=== PATIENT | male | born 1965 | race Two or more races ===

== ENCOUNTER 2019-10-07 01:26 | Inpatient (IN) | payer OTHER ==
[2019-10-07] VITALS (55 sets, daily range): BP systolic 67–145; BP diastolic 30–127
[~2019-10-07] VITALS: Ht 170.2 cm; Wt 87.6 kg
[2019-10-07] MEDS ORDERED: ACETAMINOPHEN500 M5 ORAL (01:32)
[2019-10-07] MEDS ORDERED: BISACODYL10 M1 RC (01:33)
[2019-10-07] MEDS ORDERED: DOCUSATE SODIU100 MG ORAL (01:34)
[2019-10-07] MEDS ORDERED: MINERAL OIL30 ML GT (01:35)
[2019-10-07] MEDS ORDERED: FUROSEMIDE20 M1 ORAL (01:35)
[2019-10-07] MEDS ORDERED: GABAPENTIN100 MG ORAL (01:36)
[2019-10-07] MEDS ORDERED: NORCO 5-325 TA1 EAC1 ORAL (01:37)
[2019-10-07] MEDS ORDERED: LACTULOSE20 GM/301 ORAL (01:38)
--- NOTE | 2019-10-07 01:38 | Emergency Room Report ---
History of Present Illness General Chief Complaint: Altered Level of Consciousness Source: Patient Present Illness HPI Patient is a 54-year-old male brought in by EMS from [place] [facility] for increased altered mental status. Patient had acute onset of increased confusion. Prior history of cirrhosis.Normally patient is reportedly alert and oriented. He was noted to have sugar in the 90s. Been receiving antibiotics for right lower extremity cellulitis. Had previously been taking lactulose. 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 [facility] COVID-19 Screening: Negative COVID-19 COVID-19 Testing Source: [facility] Patient History Past Medical History: see triage record Reviewed Nursing Documentation: PMH: Agreed; PSxH: Agreed Review of Systems All Other Systems: limited - by altered mental status Physical Exam Vital Signs Date Time Temp Pulse Resp B/P (MAP) Pulse Ox O2 Delivery O2 Flow Rate FiO2 10/07/19 01:25 98.4 88 19 99/56 (70) 97 Room Air General Appearance: alert, obese, Chronically Ill Head: atraumatic Eyes: bilateral eye other - hippus Neck: full range of motion Respiratory: chest non-tender, lungs clear, normal breath sounds Cardiovascular #1: regular rate, rhythm, edema - 4+ Gastrointestinal: normal inspection, soft Musculoskeletal: normal inspection Neurologic: alert, motor strength/tone normal, braid cutter III-XII nml as tested, other - confused states name Skin: other - right leg blistering and erythema Medical Decision Making Diagnostic Impression: Primary Impression: Altered level of consciousness Additional Impressions: Hyponatremia Hypoglycemia Cellulitis of right leg Cirrhosis Encephalopathy acute ER Course Patient presented for altered mental status. Differential diagnosis include was not limited to CVA, hepatic encephalopathy, uremia, hypoglycemia among others. Because of complexity of patient's case laboratory tests and imaging studies were ordered . CT imaging showed significant motion artifact without any evidence of acute intracranial hemorrhage. Chest x-ray read by radiology showed patchy infiltrate. Laboratory testing showed initial hypoglycemia with blood sugar in the 50s. Patient was given D50. He was also noted to have significant hyponatremia with initial serum sodium 116. Repeat laboratory testing after hypertonic saline showed minimal improvement the patient sodium 117 . Patient was started on hypertonic saline and given Lasix. He did not have any significant improvement in his mental status. Dr. Fish Bennett was contacted for inpatient management due to covering physician for centering Labs Test 10/07/19 01:43 10/07/19 01:50 White Blood Count 10.6 K/UL (4.8-10.8) Red Blood Count 3.02 M/UL (4.70-6.10) Hemoglobin 10.4 G/DL (14.2-18.0) Hematocrit 29.9 % (42.0-52.0) Mean Corpuscular Volume 99 FL (80-99) Mean Corpuscular Hemoglobin 34.6 PG (27.0-31.0) Mean Corpuscular Hemoglobin Concent 34.9 G/DL (32.0-36.0) Red Cell Distribution Width 14.5 % (11.6-14.8) Platelet Count 116 K/UL (150-450) Mean Platelet Volume 6.7 FL (6.5-10.1) Neutrophils (%) (Auto) 75.7 % (45.0-75.0) Lymphocytes (%) (Auto) 8.8 % (20.0-45.0) Monocytes (%) (Auto) 9.7 % (1.0-10.0) Eosinophils (%) (Auto) 3.4 % (0.0-3.0) Basophils (%) (Auto) 2.4 % (0.0-2.0) Prothrombin Time 21.8 SEC (9.30-11.50) Prothromb Time International Ratio 2.1 (0.9-1.1) Activated Partial Thromboplast Time 50 SEC (23-33) Sodium Level 116 MMOL/L (136-145) Potassium Level 5.3 MMOL/L (3.5-5.1) Chloride Level 87 MMOL/L (98-107) Carbon Dioxide Level 15 MMOL/L (21-32) Anion Gap 13 mmol/L (5-15) Blood Urea Nitrogen 48 mg/dL (7-18) Creatinine 2.4 MG/DL (0.55-1.30) Estimat Glomerular Filtration Rate 28.1 mL/min (>60) Glucose Level 68 MG/DL (74-106) Calcium Level 7.5 MG/DL (8.5-10.1) Total Bilirubin 5.2 MG/DL (0.2-1.0) Direct Bilirubin 4.2 MG/DL (0.0-0.3) Aspartate Amino Transf (AST/SGOT) 89 U/L (15-37) Alanine Aminotransferase (ALT/SGPT) 8 U/L (12-78) Alkaline Phosphatase 149 U/L (46-116) Ammonia 82 umol/L (11-32) Troponin I 0.005 ng/mL (0.000-0.056) Pro-B-Type Natriuretic Peptide 4363 pg/mL (0-125) Total Protein 6.5 G/DL (6.4-8.2) Albumin 1.6 G/DL (3.4-5.0) Globulin 4.9 g/dL Albumin/Globulin Ratio 0.3 (1.0-2.7) Thyroid Stimulating Hormone (TSH) 2.515 uiU/mL (0.358-3.740) Arterial Blood pH 7.336 (7.350-7.450) Arterial Blood Partial Pressure CO2 25.2 mmHg (35.0-45.0) Arterial Blood Partial Pressure O2 75.7 mmHg (75.0-100.0) Arterial Blood HCO3 13.2 mmol/L (22.0-26.0) Arterial Blood Oxygen Saturation 93.8 % (95-100) Arterial Blood Base Excess -11.2 (-2-2) Stefano Test Positive EKG Diagnostic Results Rate: normal Rhythm: NSR ST Segments: no acute changes Last Vital Signs Date Time Temp Pulse Resp B/P (MAP) Pulse Ox O2 Delivery O2 Flow Rate FiO2 10/07/19 01:25 98.4 88 19 99/56 (70) 97 Room Air Status: improved Disposition: ADMITTED INPATIENT Condition: Critical Frank Hayes MD Oct 07, 2019 01:38
[2019-10-07] MEDS ORDERED: LANTUS SOL100 UNIT/1 SUBQ (01:39)
[2019-10-07] MEDS ORDERED: MULTIVITAMINS1 EAC2 ORAL (01:40)
[2019-10-07] MEDS ORDERED: PROPRANOLOL HCL10 MG ORAL (01:40)
[2019-10-07] MEDS ORDERED: SENNA8.6 M2 PO (01:41)
[2019-10-07] MEDS ORDERED: SPIRONOLACTONE100 MG ORAL (01:42)
[2019-10-07] MEDS ORDERED: INSULIN LI100 UNIT/1 SQ (01:47)
[2019-10-07] MEDS ORDERED: Thiamine HCl 100 MG in D5W 55 ML IVPB ONE (02:00)
[2019-10-07] MEDS: D5NS 1,000 ML IV SCH ×3 (02:04→17:51)
[2019-10-07 02:07] LABS: BASOPHILS % (AUTO) 2.4 % (0.0-2.0); EOSINOPHILS % (AUTO) 3.4 % (0.0-3.0); HEMATOCRIT 29.9 % (42.0-52.0); HEMOGLOBIN 10.4 G/DL (14.2-18.0); LYMPHOCYTES % (AUTO) 8.8 % (20.0-45.0); MEAN CORPUSCULAR VOLUME 99 FL (80-99); MONOCYTES % (AUTO) 9.7 % (1.0-10.0); NEUTROPHILS % (AUTO) 75.7 % (45.0-75.0); PLATELET COUNT 116 K/UL (150-450); RED BLOOD COUNT 3.02 M/UL (4.70-6.10); RED CELL DISTRIBUTION WIDTH 14.5 % (11.6-14.8); WHITE BLOOD COUNT 10.6 K/UL (4.8-10.8)
[2019-10-07 02:14] LABS: AMMONIA 82 umol/L (11-32)
[2019-10-07 02:15] LABS: INR 2.1 (0.9-1.1)
[2019-10-07 02:28] LABS: ALANINE AMINOTRANSFERASE 8 U/L (12-78); ALBUMIN 1.6 G/DL (3.4-5.0); ALBUMIN/GLOBULIN RATIO 0.3 (1.0-2.7); ALKALINE PHOSPHATASE 149 U/L (46-116); ANION GAP 13 mmol/L (5-15); ASPARTATE AMINO TRANSFERASE 89 U/L (15-37); BILIRUBIN,TOTAL 5.2 MG/DL (0.2-1.0); BLOOD UREA NITROGEN 48 mg/dL (7-18); CALCIUM 7.5 MG/DL (8.5-10.1); CARBON DIOXIDE 15 MMOL/L (21-32); CHLORIDE 87 MMOL/L (98-107); CREATININE 2.4 MG/DL (0.55-1.30); POTASSIUM 5.3 MMOL/L (3.5-5.1)
[2019-10-07 02:29] LABS: SODIUM 116 MMOL/L (136-145)
[2019-10-07 02:30] LABS: BILIRUBIN,DIRECT 4.2 MG/DL (0.0-0.3)
[2019-10-07] MEDS ORDERED: NaCl 3% 500ml 250 ML IV ONE (02:45)
--- NOTE | 2019-10-07 02:46 | Diagnostic Imaging Report ---
EXAM: CT Head Without Intravenous Contrast CLINICAL HISTORY: AMS TECHNIQUE: Axial computed tomography images of the head/brain without intravenous contrast. CTDI is 53 mGy and DLP is 1179 mGy-cm. One or more of the following dose reduction techniques were used: automated exposure control, adjustment of the mA and/or kV according to patient size, use of iterative reconstruction technique. COMPARISON: No relevant prior studies available. FINDINGS: Limitations: Study substantially limited due to patient motion artifact on the majority of the study. Brain: No large intracranial mass, hemorrhage, or mass effect seen. No significant white matter disease. Ventricles: Unremarkable. No ventriculomegaly. Bones/joints: Unremarkable. No acute fracture. Soft tissues: Unremarkable. Sinuses: Unremarkable as visualized. No acute sinusitis. Mastoid air cells: Unremarkable as visualized. No mastoid effusion. Other findings: If there is continued concern, recommend repeating study. IMPRESSION: 1. Study substantially limited due to patient motion artifact on the majority of the study. 2. No large intracranial mass, hemorrhage, or mass effect seen. 3. If there is continued concern, recommend repeating study.
--- NOTE | 2019-10-07 03:01 | Diagnostic Imaging Report ---
EXAM: XR Chest, 1 View CLINICAL HISTORY: AMS TECHNIQUE: Frontal view of the chest. COMPARISON: No relevant prior studies available. FINDINGS: Lungs: Low lung volumes with bronchovascular crowding. Patchy left lower lung opacities could represent airspace infectious or inflammatory opacities, although these could also be due to low lung volumes. Pleural space: Unremarkable. No pneumothorax. Heart: Unremarkable. No cardiomegaly. Mediastinum: Unremarkable. Bones/joints: Degenerative spine findings. Other findings: If there is further clinical concern or ambiguity, recommend CT. IMPRESSION: 1. Low lung volumes with bronchovascular crowding. 2. Patchy left lower lung opacities could represent airspace infectious or inflammatory opacities, although these could also be due to low lung volumes. 3. If there is further clinical concern or ambiguity, recommend CT.
[2019-10-07 04:29] LABS: APPEARANCE,URINE CLEAR; BILIRUBIN, URINE 2+ (NEGATIVE); COLOR,URINE BROWN; GLUCOSE, URINE (UA) NEGATIVE (NEGATIVE); KETONES,URINE 2+ (NEGATIVE); LEUKOCYTE ESTERASE ,URINE 1+ (NEGATIVE); NITRITE,URINE NEGATIVE (NEGATIVE); PH,URINE 5 (4.5-8.0); PROTEIN,URINE 1+ (NEGATIVE); UROBILINOGEN,URINE 1 MG/DL (0.0-1.0)
[2019-10-07] MEDS ORDERED: cefTRIAXone 1 GM in NS 55 ML IVPB ONE (04:45)
[2019-10-07 04:47] LABS: ALANINE AMINOTRANSFERASE 20 U/L (12-78); ANION GAP 12 mmol/L (5-15); ASPARTATE AMINO TRANSFERASE 80 U/L (15-37); BILIRUBIN,TOTAL 5.2 MG/DL (0.2-1.0); CALCIUM 7.4 MG/DL (8.5-10.1); CARBON DIOXIDE 15 MMOL/L (21-32); CHLORIDE 89 MMOL/L (98-107); CREATININE 2.5 MG/DL (0.55-1.30); POTASSIUM 5.4 MMOL/L (3.5-5.1)
[2019-10-07 04:54] LABS: SODIUM 117 MMOL/L (136-145)
[2019-10-07 05:02] LABS: ALBUMIN/GLOBULIN RATIO 0.3 (1.0-2.7); BILIRUBIN,DIRECT 4.3 MG/DL (0.0-0.3); BLOOD UREA NITROGEN 51 mg/dL (7-18)
[2019-10-07 05:03] LABS: ALBUMIN 1.5 G/DL (3.4-5.0)
[2019-10-07 05:24] LABS: ALKALINE PHOSPHATASE 142 U/L (46-116)
--- NOTE | 2019-10-07 08:54 | Consultation ---
Consult Note Consult Note Patient seen at the request of Dr. Fairchild, examined, discussed with RN Chief Complaint: Altered Level of Consciousness Source: Patient Patient is a 54-year-old male brought in by EMS from [place] [facility] for increased altered mental status. Patient had acute onset of increased confusion. Prior history of cirrhosis.Normally patient is reportedly alert and oriented. He was noted to have sugar in the 90s. Been receiving antibiotics for right lower extremity cellulitis. Had previously been taking lactulose. 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 [facility] COVID-19 Screening: Negative COVID-19 COVID-19 Testing Source: [facility] Vital Signs Date Time Temp Pulse Resp B/P (MAP) Pulse Ox O2 Delivery O2 Flow Rate FiO2 10/07/19 01:25 98.4 88 19 99/56 (70) 97 Room Air General Appearance: alert, obese, Chronically Ill Head: atraumatic Eyes: bilateral eye other - hippus, icteric Neck: full range of motion Respiratory: chest non-tender, lungs clear, normal breath sounds Cardiovascular #1: regular rate, rhythm, edema - 4+ Gastrointestinal: normal inspection, soft, distended, ascites Musculoskeletal: normal inspection Neurologic: confused states name Skin: other - right leg blistering and erythema, 4+ leg edema . Assessment/Plan Acute renal failure Liver cirrhosis, likely alcoholic in etiology Acute encephalopathy, toxic metabolic Severe hyponatremia Hypoglycemia Cellulitis of the leg Anemia Suggest: Avendano catheter NG tube Hydrate, aim to correct electrolytes Lactulose Monitor renal parameters Monitor urine output Urine studies Levophed to keep the blood pressure over 95 systolic Discussed with Craig Monterroso MD Oct 07, 2019 08:54
[2019-10-07] MEDS ORDERED: Lactulose 20gm/30ml UDC ORAL SCH (09:00)
[2019-10-07] MEDS: Norepinephrine Premix 4mg/NS 250mL IV SCH ×3 (09:15→21:53)
[2019-10-07] MEDS ORDERED: Cortrosyn 0.25mg Inj IVP SCH (10:00)
[2019-10-07] MEDS: Thiamine HCl 100 MG in D5W 55 ML IVPB SCH (10:38)
[2019-10-07] MEDS: cefTRIAXone 1 GM in D5W 55 ML IVPB SCH (10:39)
--- NOTE | 2019-10-07 10:53 | Consultation ---
History of Present Illness General Chief Complaint: Altered Level of Consciousness Present Illness Allergies: Coded Allergies: No Known Allergies (Unverified , 10/07/19) Medication History Scheduled Acetaminophen (Acetaminophen), 325 MG ORAL Q4H, (Reported) Docusate Sodium* (Docusate Sodium*), 100 MG ORAL TWICE A DAY, (Reported) Furosemide* (Lasix*), 20 MG ORAL DAILY, (Reported) Gabapentin* (Gabapentin*), 100 MG ORAL THREE TIMES A DAY, (Reported) Insulin Glargine (Lantus), 30 SUBQ BEDTIME, (Reported) Insulin Lispro (Insulin Lispro), 100 UNIT SQ ss, (Reported) Multivitamins* (Multivitamins*), 1 TAB ORAL DAILY, (Reported) Propranolol Hcl* (Inderal*), 10 MG ORAL THREE TIMES A DAY, (Reported) Sennosides (Senna), 8.6 MG PO BEDTIME, (Reported) Spironolactone* (Spironolactone*), 25 MG ORAL BID, (Reported) Scheduled PRN Hydrocodone Bit/Acetaminophen 5-325* ([place] 5-325 Tablet*), 1 TAB ORAL Q4H PRN for For Pain, (Reported) Miscellaneous Medications Bisacodyl (Bisacodyl), 10 MG RC, (Reported) Lactulose (Lactulose*), 30 ML ORAL, (Reported) Mineral Oil (Mineral Oil), 30 ML GT, (Reported) Patient History Healthcare decision maker Resuscitation status Advanced Directive on File Physical Exam Last 24 Hour Vital Signs Date Time Temp Pulse Resp B/P (MAP) Pulse Ox O2 Delivery O2 Flow Rate FiO2 10/07/19 09:15 100/85 10/07/19 07:39 95 10/07/19 06:30 97.4 100 22 111/80 100 Room Air 10/07/19 06:00 97.3 104 18 99/80 100 Room Air 10/07/19 05:05 97.3 99 15 100/78 99 Room Air 10/07/19 04:25 97.3 99 17 111/81 100 Room Air 10/07/19 03:30 98.0 101 15 127/90 100 Room Air 10/07/19 03:00 98.0 102 19 101/77 98 Room Air 10/07/19 02:35 98.0 99 15 105/56 99 Room Air 10/07/19 01:30 100 19 Room Air 10/07/19 01:30 97.3 100 19 145/127 100 Room Air 10/07/19 01:25 98.4 88 19 99/56 (70) 97 Room Air Intake and Output 10/06/19 10/07/19 19:00 07:00 Output Total 400 ml Balance -400 ml Output Urine Total 400 ml Laboratory Tests Test 10/07/19 01:43 10/07/19 01:50 10/07/19 04:17 10/07/19 09:30 White Blood Count 10.6 K/UL (4.8-10.8) Red Blood Count 3.02 M/UL (4.70-6.10) L Hemoglobin 10.4 G/DL (14.2-18.0) L Hematocrit 29.9 % (42.0-52.0) L Mean Corpuscular Volume 99 FL (80-99) Mean Corpuscular Hemoglobin 34.6 PG (27.0-31.0) H Mean Corpuscular Hemoglobin Concent 34.9 G/DL (32.0-36.0) Red Cell Distribution Width 14.5 % (11.6-14.8) Platelet Count 116 K/UL (150-450) L Mean Platelet Volume 6.7 FL (6.5-10.1) Neutrophils (%) (Auto) 75.7 % (45.0-75.0) H Lymphocytes (%) (Auto) 8.8 % (20.0-45.0) L Monocytes (%) (Auto) 9.7 % (1.0-10.0) Eosinophils (%) (Auto) 3.4 % (0.0-3.0) H Basophils (%) (Auto) 2.4 % (0.0-2.0) H Prothrombin Time 21.8 SEC (9.30-11.50) H Prothromb Time International Ratio 2.1 (0.9-1.1) H Activated Partial Thromboplast Time 50 SEC (23-33) H Sodium Level 116 MMOL/L (136-145) *L 117 MMOL/L (136-145) *L Potassium Level 5.3 MMOL/L (3.5-5.1) H 5.4 MMOL/L (3.5-5.1) H Chloride Level 87 MMOL/L (98-107) L 89 MMOL/L (98-107) L Carbon Dioxide Level 15 MMOL/L (21-32) L 15 MMOL/L (21-32) L Anion Gap 13 mmol/L (5-15) 12 mmol/L (5-15) Blood Urea Nitrogen 48 mg/dL (7-18) H 51 mg/dL (7-18) H Creatinine 2.4 MG/DL (0.55-1.30) H 2.5 MG/DL (0.55-1.30) H Estimat Glomerular Filtration Rate 28.1 mL/min (>60) 26.8 mL/min (>60) Glucose Level 68 MG/DL (74-106) L 97 MG/DL (74-106) Calcium Level 7.5 MG/DL (8.5-10.1) L 7.4 MG/DL (8.5-10.1) L Total Bilirubin 5.2 MG/DL (0.2-1.0) H 5.2 MG/DL (0.2-1.0) H Direct Bilirubin 4.2 MG/DL (0.0-0.3) H 4.3 MG/DL (0.0-0.3) H Aspartate Amino Transf (AST/SGOT) 89 U/L (15-37) H 80 U/L (15-37) H Alanine Aminotransferase (ALT/SGPT) 8 U/L (12-78) L 20 U/L (12-78) Alkaline Phosphatase 149 U/L (46-116) H 142 U/L (46-116) H Ammonia 82 umol/L (11-32) H Troponin I 0.005 ng/mL (0.000-0.056) Pro-B-Type Natriuretic Peptide 4363 pg/mL (0-125) H Total Protein 6.5 G/DL (6.4-8.2) 6.2 G/DL (6.4-8.2) L Albumin 1.6 G/DL (3.4-5.0) L 1.5 G/DL (3.4-5.0) L Globulin 4.9 g/dL 4.7 g/dL Albumin/Globulin Ratio 0.3 (1.0-2.7) L 0.3 (1.0-2.7) L Thyroid Stimulating Hormone (TSH) 2.515 uiU/mL (0.358-3.740) Cortisol Pending Pending Arterial Blood pH 7.336 (7.350-7.450) Arterial Blood Partial Pressure CO2 25.2 mmHg (35.0-45.0) L Arterial Blood Partial Pressure O2 75.7 mmHg (75.0-100.0) Arterial Blood HCO3 13.2 mmol/L (22.0-26.0) *L Arterial Blood Oxygen Saturation 93.8 % (95-100) L Arterial Blood Base Excess -11.2 (-2-2) *L Stefano Test Positive Urine Color Brown Urine Appearance Clear Urine pH 5 (4.5-8.0) Urine Specific [place] 1.015 (1.005-1.035) Urine Protein 1+ (NEGATIVE) H Urine Glucose (UA) Negative (NEGATIVE) Urine Ketones 2+ (NEGATIVE) H Urine Blood 2+ (NEGATIVE) H Urine Nitrite Negative (NEGATIVE) Urine Bilirubin 2+ (NEGATIVE) H Urine Ictotest Positive (NEGATIVE) Urine Urobilinogen 1 MG/DL (0.0-1.0) H Urine Leukocyte Esterase 1+ (NEGATIVE) H Urine RBC 2-4 /HPF (0 - 0) H Urine WBC 2-4 /HPF (0 - 0) Urine Squamous Epithelial Cells Occasional /LPF Urine Bacteria Occasional /HPF (NONE) Urine Hyaline Casts 10-15 /LPF (NONE) H Urine Mucus Few /LPF (NONE/OCC) H Fibrinogen 246 mg/dL (200-400) Urine Osmolality Pending Urine Random Sodium Pending Hemoglobin A1c 5.3 % (4.3-6.0) Osmolality Pending Uric Acid Pending Phosphorus Level Pending Magnesium Level Pending Ferritin Pending Gamma Glutamyl Transpeptidase Pending Triglycerides Level Pending Cholesterol Level Pending LDL Cholesterol Pending HDL Cholesterol Pending Cholesterol/HDL Ratio Pending Vitamin B12 Level Pending Folate Pending Hepatitis A IgM Antibody Pending Hepatitis B Surface Antigen Pending Hepatitis B Core IgM Antibody Pending Hepatitis C Antibody Pending HIV (1&2) Antibody Rapid Pending Height (Feet): 5 Height (Inches): 7.00 Weight (Pounds): 300 Medications Current Medications Medications (Trade) Dose Ordered Sig/Adelita Route PRN Reason Start Time Stop Time Status Last Admin Dose Admin Ceftriaxone Sodium 1 gm/ Dextrose 55 ml @ 110 mls/hr Q24H IVPB 10/07/19 10:00 10/14/19 09:59 10/07/19 10:39 Cosyntropin (Cortrosyn) 0.25 mg ONCE IVP 10/07/19 10:00 11/06/19 09:59 10/07/19 10:38 Dextrose (Dextrose 50%) 25 ml Q30M PRN IV Hypoglycemia 10/07/19 09:00 01/05/20 08:59 Dextrose (Dextrose 50%) 50 ml Q30M PRN IV Hypoglycemia 10/07/19 09:00 01/05/20 08:59 Dextrose/Sodium Chloride 1,000 ml @ 125 mls/hr Q8H IV 10/07/19 02:00 11/06/19 01:59 10/07/19 10:02 Lactulose (Cephulac) 30 gm FOUR TIMES A DAY ORAL 10/07/19 13:00 11/06/19 08:59 Norepinephrine Bitartrate 250 ml @ 0 mls/hr Q24H IV 10/07/19 09:15 01/05/20 09:14 Sodium Chloride 250 ml @ 30 mls/hr ONCE ONCE IV 10/07/19 02:45 10/07/19 11:04 10/07/19 02:53 Thiamine HCl 100 mg/Dextrose 56 ml @ 112 mls/hr Q24H IVPB 10/07/19 10:00 11/06/19 09:59 10/07/19 10:38 Vancomycin HCl ([facility] pharmacy to dose) 1 ea DAILY PRN MISC Per rx protocol 10/07/19 10:00 11/06/19 09:59 Vancomycin HCl 2 gm/Dextrose 550 ml @ 275 mls/hr ONCE ONCE IVPB 10/07/19 11:30 10/07/19 13:29 Assessment/Plan Assessment/Plan: Hematology Consultation REQ : Fish Bennett RFC: Cytopenia, Anemia, low plts DOS 10/07/2019 HPI Seen in [place], called by Dr. Bennett Patient is a 54-year-old male brought in by EMS from [place] [facility] for increased altered mental status. Patient had acute onset of increased confusion. Prior history of cirrhosis.Normally patient is reportedly alert and oriented. He was noted to have sugar in the 90s. Been receiving antibiotics for right lower extremity cellulitis. Had previously been taking lactulose. P/ w low platelets, jaundiced, have ordered w/u currently is not bleeding. 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 [facility] COVID-19 Screening: Negative COVID-19 COVID-19 Testing Source: [facility] Patient History Past Medical History: see triage record Reviewed Nursing Documentation: PMH: Agreed; PSxH: Agreed Review of Systems All Other Systems: limited - by altered mental status PE General: alert, obese, Chronically Ill Head: atraumatic Eyes: bilateral eye other - hippus Neck: full range of motion++jaundice Respiratory: chest non-tender, lungs clear, normal breath sounds Cardiovascular: regular rate, rhythm, edema - 4+ Gastrointestinal: normal inspection, soft Musculoskeletal: normal inspection Neurologic: alert, motor strength/tone normal, is architect III-XII nml as tested, other - confused states name Skin: other - right leg blistering and erythema Labs: noted Imaging: reviewed Assessment and Recs # Thrombocytopenia - potential causes multifactorial, evaluate liver and viral etiologies to begin, also could be related to underlying medications patient has received. does have jaundice on exam, concerning for liver disease/does have a hx of cirrhosis --> Hep panel and HIV ordered --> US abd to evaluate for cirrhosis and hsm ordered --> Peripheral smear ordered to evaluate for blasts /schistocytes --> abx and other meds have been reviewed --> ok for ppx if plt >50k w/ either heparin or lovenox --> Transfuse if Plt < 20k and fever, or if Plt < 10k without fever --> plt 106k # Coagulopathy is also likely related to liver disease --> trend inr/pt --> vit K as needed prn sq --> given ast/alt may be etoh related # Altered level of consciousness --> rlo infection, cxr does show opacities # Hyponatremia --> per renla # Hypoglycemia -_> d50 prn # Cellulitis of right leg --> abx # Cirrhosis # Encephalopathy acute # Dvt ppx scds The timing of this note does not necessarily reflect the time of the patient was seen. Greatly appreciate consultation. Jasvir Shore MD Oct 07, 2019 10:53
[2019-10-07 11:00] LABS: CHOLESTEROL 59 MG/DL (< 200); GAMMA GLUTAMYL TRANSPEPTIDASE 98 U/L (5-85); HDL CHOLESTEROL 8 MG/DL (40-60); TRIGLYCERIDES 85 MG/DL (30-150)
[2019-10-07 11:11] LABS: FERRITIN 607 NG/ML (8-388); PHOSPHORUS 5.1 MG/DL (2.5-4.9)
[2019-10-07] MEDS ORDERED: Vancomycin 2gm/D5W 550ml IVPB ONE ×2 (11:30)
--- NOTE | 2019-10-07 11:56 | Diagnostic Imaging Report ---
EXAM: XR Abdomen, 2 Views CLINICAL HISTORY: NGT TECHNIQUE: Frontal view of the abdomen/pelvis with upright view of the abdomen. COMPARISON: No relevant prior studies available. FINDINGS/IMPRESSION: Enteric feeding tube terminates in the stomach. Nonobstructed bowel gas pattern; however, relative paucity of bowel gas.
[2019-10-07] MEDS: Lactulose 20gm/30ml UDC ORAL SCH ×3 (12:31→21:08)
[2019-10-07] MEDS ORDERED: D5NS 1000ml IV ONE (13:21)
[2019-10-07] MEDS ORDERED: NS 275ml ONE (13:21)
--- NOTE | 2019-10-07 14:24 | Consultation ---
History of Present Illness General Date patient seen: Oct 07, 2019 Reason for Hospitalization: Altered Level of Consciousness Present Illness HPI This is a 54-year-old male brought in by EMS from his convalescent center for increased altered mental status. Patient had acute onset of increased confusion. Prior history of cirrhosis. Normally patient is reportedly alert and oriented. He was noted to have sugar in the 90s. Been receiving antibiotics for right lower extremity cellulitis. Had previously been taking lactulose. P/w low platelets, jaundiced, have ordered w/u currently is not bleeding. Admitted to the intensive care unit for care and management from the emergency department. Identified to have abnormal labs. Significant lower extremity cellulitis worse on the right. Blistering noted. Surgery called to evaluate assist with care. Patient seen, patient evaluated, chart reviewed. He is responsive but confused. Unaware following side cellulitis 4. Does complain of pain. Allergies: Coded Allergies: No Known Allergies (Unverified , 10/07/19) COVID-19 Screening Contact w/high risk pt: Yes Experienced COVID-19 symptoms?: Yes COVID-19 symptoms experienced: Flu-Like Symptoms Medication History Scheduled Acetaminophen (Acetaminophen), 325 MG ORAL Q4H, (Reported) Docusate Sodium* (Docusate Sodium*), 100 MG ORAL TWICE A DAY, (Reported) Furosemide* (Lasix*), 20 MG ORAL DAILY, (Reported) Gabapentin* (Gabapentin*), 100 MG ORAL THREE TIMES A DAY, (Reported) Insulin Glargine (Lantus), 30 SUBQ BEDTIME, (Reported) Insulin Lispro (Insulin Lispro), 100 UNIT SQ ss, (Reported) Multivitamins* (Multivitamins*), 1 TAB ORAL DAILY, (Reported) Propranolol Hcl* (Inderal*), 10 MG ORAL THREE TIMES A DAY, (Reported) Sennosides (Senna), 8.6 MG PO BEDTIME, (Reported) Spironolactone* (Spironolactone*), 25 MG ORAL BID, (Reported) Scheduled PRN Hydrocodone Bit/Acetaminophen 5-325* ([place] 5-325 Tablet*), 1 TAB ORAL Q4H PRN for For Pain, (Reported) Miscellaneous Medications Bisacodyl (Bisacodyl), 10 MG RC, (Reported) Lactulose (Lactulose*), 30 ML ORAL, (Reported) Mineral Oil (Mineral Oil), 30 ML GT, (Reported) Patient History Limited by: medical condition History Provided By: Patient, Medical Record, PMD Healthcare decision maker Resuscitation status Advanced Directive on File Past Medical/Surgical History Past Medical/Surgical History: (1) Cirrhosis (2) Hypoglycemia (3) Hyponatremia (4) Altered level of consciousness (5) Cellulitis of right leg (6) Encephalopathy acute Review of Systems Review of Symptoms General ROS: no weight loss or fever Psychological ROS: no depression or mood changes, no memory loss Ophthalmic ROS: no visual changes or eye irritation ENT ROS: no nasal congestion, hearing loss, dizziness Allergy and Immunology ROS: no allergic symptoms or urticaria Hematological and Lymphatic ROS: no swollen glands, unusual bleeding or bruising Endocrine ROS: no polyuria, polydipsia, weight changes, temperature intolerance Respiratory ROS: no cough, shortness of breath, or wheezing Cardiovascular ROS: no chest pain or dyspnea on exertion Gastrointestinal ROS: denies abdominal pain, bright red blood in stool. Musculoskeletal ROS: no myalgias or arthralgias Neurological ROS: no TIA or stroke symptoms Dermatological ROS: no new or changing skin lesions, rashes or pruritis Limited is he says no to everything but when touched complains of pain. Physical Exam Physical Exam General appearance: alert, cooperative, no distress, appears stated age Head: Normocephalic, without obvious abnormality, atraumatic Eyes: conjunctivae/corneas clear. PERRL, EOM's intact. Fundi benign Throat: Lips, mucosa, and tongue normal. Teeth and gums normal Neck: supple, symmetrical, trachea midline, no adenopathy, thyroid: not enlarged, symmetric, no tenderness/mass/nodules, no carotid bruit and no JVD Lungs: clear to auscultation bilaterally Heart: regular rate and rhythm, S1, S2 normal, no murmur, click, rub or gallop Abdomen: soft, non-tender. Bowel sounds normal. No masses, no organomegaly Extremities: extremities with bilateral edema right side with significant cellulitis and blistering soft pulses palpable Pulses: 2+ and symmetric Skin: Skin color, texture, turgor normal. No rashes or lesions Neurologic: Grossly normal Last 24 Hour Vital Signs Date Time Temp Pulse Resp B/P (MAP) Pulse Ox O2 Delivery O2 Flow Rate FiO2 7/19/20 14:00 91 16 96/53 (67) 97 720 13:45 90 20 107/55 (72) 98 7/20 13:30 89 17 100/66 (77) 98 720 13:15 90 18 101/52 (68) 98 7//20 13:00 91 17 97/55 (69) 98 7/20 12:47 90 17 98/57 (71) 98 720 12:45 91 17 94/52 (66) 99 720 12:30 92 16 87/46 (60) 98 720 12:15 94 17 95/59 (71) 99 720 12:00 94 720 12:00 97.1 94 16 104/45 (64) 98 720 11:45 93 15 96/52 (67) 99 720 11:30 92 18 101/59 (73) 98 720 11:15 89 15 95/54 (68) 99 720 11:00 88 15 102/59 (73) 99 7/20 10:58 87/48 7/20 10:45 87 19 83/30 (47) 98 720 10:30 87 19 88/52 (64) 99 720 10:00 91 18 95/37 (56) 98 7/20 09:30 92 18 100/85 (90) 20 09:15 100/85 720 09:00 94 17 96/68 (77) 97 720 08:30 92 18 92/46 (61) 98 720 08:00 96 15 89/66 (74) 98 720 07:39 95 720 07:30 94 17 90/43 (59) 99 720 07:00 97.4 92 14 100/53 (69) 100 720 06:30 97.4 100 22 111/80 100 Room Air 7 06:00 97.3 104 18 99/80 100 Room Air 7 05:05 97.3 99 15 100/78 99 Room Air 720 04:25 97.3 99 17 111/81 100 Room Air 7/19/20 03:30 98.0 101 15 127/90 100 Room Air 10/07/19 03:00 98.0 102 19 101/77 98 Room Air 10/07/19 02:35 98.0 99 15 105/56 99 Room Air 10/07/19 01:30 100 19 Room Air 10/07/19 01:30 97.3 100 19 145/127 100 Room Air 10/07/19 01:25 98.4 88 19 99/56 (70) 97 Room Air Intake and Output 10/06/19 10/07/19 19:00 07:00 Output Total 405 ml Balance -405 ml Output Urine Total 405 ml Laboratory Tests Test 10/07/19 00:00 10/07/19 01:43 10/07/19 01:50 10/07/19 04:17 HIV-1 Antibody Pending HIV-2 Antibody Pending White Blood Count 10.6 K/UL (4.8-10.8) Red Blood Count 3.02 M/UL (4.70-6.10) L Hemoglobin 10.4 G/DL (14.2-18.0) L Hematocrit 29.9 % (42.0-52.0) L Mean Corpuscular Volume 99 FL (80-99) Mean Corpuscular Hemoglobin 34.6 PG (27.0-31.0) H Mean Corpuscular Hemoglobin Concent 34.9 G/DL (32.0-36.0) Red Cell Distribution Width 14.5 % (11.6-14.8) Platelet Count 116 K/UL (150-450) L Mean Platelet Volume 6.7 FL (6.5-10.1) Neutrophils (%) (Auto) 75.7 % (45.0-75.0) H Lymphocytes (%) (Auto) 8.8 % (20.0-45.0) L Monocytes (%) (Auto) 9.7 % (1.0-10.0) Eosinophils (%) (Auto) 3.4 % (0.0-3.0) H Basophils (%) (Auto) 2.4 % (0.0-2.0) H Prothrombin Time 21.8 SEC (9.30-11.50) H Prothromb Time International Ratio 2.1 (0.9-1.1) H Activated Partial Thromboplast Time 50 SEC (23-33) H Sodium Level 116 MMOL/L (136-145) *L 117 MMOL/L (136-145) *L Potassium Level 5.3 MMOL/L (3.5-5.1) H 5.4 MMOL/L (3.5-5.1) H Chloride Level 87 MMOL/L (98-107) L 89 MMOL/L (98-107) L Carbon Dioxide Level 15 MMOL/L (21-32) L 15 MMOL/L (21-32) L Anion Gap 13 mmol/L (5-15) 12 mmol/L (5-15) Blood Urea Nitrogen 48 mg/dL (7-18) H 51 mg/dL (7-18) H Creatinine 2.4 MG/DL (0.55-1.30) H 2.5 MG/DL (0.55-1.30) H Estimat Glomerular Filtration Rate 28.1 mL/min (>60) 26.8 mL/min (>60) Glucose Level 68 MG/DL (74-106) L 97 MG/DL (74-106) Calcium Level 7.5 MG/DL (8.5-10.1) L 7.4 MG/DL (8.5-10.1) L Total Bilirubin 5.2 MG/DL (0.2-1.0) H 5.2 MG/DL (0.2-1.0) H Direct Bilirubin 4.2 MG/DL (0.0-0.3) H 4.3 MG/DL (0.0-0.3) H Aspartate Amino Transf (AST/SGOT) 89 U/L (15-37) H 80 U/L (15-37) H Alanine Aminotransferase (ALT/SGPT) 8 U/L (12-78) L 20 U/L (12-78) Alkaline Phosphatase 149 U/L (46-116) H 142 U/L (46-116) H Ammonia 82 umol/L (11-32) H Troponin I 0.005 ng/mL (0.000-0.056) Pro-B-Type Natriuretic Peptide 4363 pg/mL (0-125) H Total Protein 6.5 G/DL (6.4-8.2) 6.2 G/DL (6.4-8.2) L Albumin 1.6 G/DL (3.4-5.0) L 1.5 G/DL (3.4-5.0) L Globulin 4.9 g/dL 4.7 g/dL Albumin/Globulin Ratio 0.3 (1.0-2.7) L 0.3 (1.0-2.7) L Thyroid Stimulating Hormone (TSH) 2.515 uiU/mL (0.358-3.740) Cortisol Pending Arterial Blood pH 7.336 (7.350-7.450) Arterial Blood Partial Pressure CO2 25.2 mmHg (35.0-45.0) L Arterial Blood Partial Pressure O2 75.7 mmHg (75.0-100.0) Arterial Blood HCO3 13.2 mmol/L (22.0-26.0) *L Arterial Blood Oxygen Saturation 93.8 % (95-100) L Arterial Blood Base Excess -11.2 (-2-2) *L Stefano Test Positive Urine Color Brown Urine Appearance Clear Urine pH 5 (4.5-8.0) Urine Specific [place] 1.015 (1.005-1.035) Urine Protein 1+ (NEGATIVE) H Urine Glucose (UA) Negative (NEGATIVE) Urine Ketones 2+ (NEGATIVE) H Urine Blood 2+ (NEGATIVE) H Urine Nitrite Negative (NEGATIVE) Urine Bilirubin 2+ (NEGATIVE) H Urine Ictotest Positive (NEGATIVE) Urine Urobilinogen 1 MG/DL (0.0-1.0) H Urine Leukocyte Esterase 1+ (NEGATIVE) H Urine RBC 2-4 /HPF (0 - 0) H Urine WBC 2-4 /HPF (0 - 0) Urine Squamous Epithelial Cells Occasional /LPF Urine Bacteria Occasional /HPF (NONE) Urine Hyaline Casts 10-15 /LPF (NONE) H Urine Mucus Few /LPF (NONE/OCC) H Test 10/07/19 09:30 10/07/19 11:00 Fibrinogen 246 mg/dL (200-400) Urine Osmolality 276 mOsm/kg (429-449) L Urine Random Sodium < 20 mmol/L (20-110) L Hemoglobin A1c 5.3 % (4.3-6.0) Osmolality 269 mOsm/kg (297-317) L Uric Acid 7.3 MG/DL (2.6-7.2) H Phosphorus Level 5.1 MG/DL (2.5-4.9) H Magnesium Level 1.8 MG/DL (1.8-2.4) Ferritin 607 NG/ML (8-388) H Gamma Glutamyl Transpeptidase 98 U/L (5-85) H Triglycerides Level 85 MG/DL (30-150) Cholesterol Level 59 MG/DL (< 200) LDL Cholesterol 29 mg/dL (<100) HDL Cholesterol 8 MG/DL (40-60) L Cholesterol/HDL Ratio 7.4 (3.3-4.4) H Vitamin B12 Level > 2000 PG/ML (193-986) H Folate 4.3 NG/ML (8.6-58.9) L Cortisol Pending Pending Hepatitis A IgM Antibody Pending Hepatitis B Surface Antigen Pending Hepatitis B Core IgM Antibody Pending Hepatitis C Antibody Pending HIV (1&2) Antibody Rapid Preliminary positive Height (Feet): 5 Height (Inches): 7.00 Weight (Pounds): 300 Medications Current Medications Medications (Trade) Dose Ordered Sig/Adelita Route PRN Reason Start Time Stop Time Status Last Admin Dose Admin Ceftriaxone Sodium 1 gm/ Dextrose 55 ml @ 110 mls/hr Q24H IVPB 10/07/19 10:00 10/14/19 09:59 10/07/19 10:39 Cosyntropin (Cortrosyn) 0.25 mg ONCE IVP 10/07/19 10:00 11/06/19 09:59 10/07/19 10:38 Dextrose (Dextrose 50%) 25 ml Q30M PRN IV Hypoglycemia 10/07/19 09:00 01/05/20 08:59 Dextrose (Dextrose 50%) 50 ml Q30M PRN IV Hypoglycemia 10/07/19 09:00 01/05/20 08:59 Dextrose/Sodium Chloride 1,000 ml @ 125 mls/hr Q8H IV 10/07/19 02:00 11/06/19 01:59 10/07/19 10:02 Lactulose (Cephulac) 30 gm FOUR TIMES A DAY ORAL 10/07/19 13:00 11/06/19 08:59 10/07/19 12:31 Norepinephrine Bitartrate 250 ml @ 0 mls/hr Q24H IV 10/07/19 09:15 01/05/20 09:14 10/07/19 10:58 Thiamine HCl 100 mg/Dextrose 56 ml @ 112 mls/hr Q24H IVPB 10/07/19 10:00 11/06/19 09:59 10/07/19 10:38 Vancomycin HCl ([facility] pharmacy to dose) 1 ea DAILY PRN MISC Per rx protocol 10/07/19 10:00 11/06/19 09:59 Assessment/Plan Problem List: (1) Cirrhosis ICD Codes: K74.60 - Unspecified cirrhosis of liver SNOMED: 03954250, 706537055 (2) Hypoglycemia ICD Codes: E16.2 - Hypoglycemia, unspecified SNOMED: 265444623, 612386130 (3) Hyponatremia ICD Codes: E87.1 - Hypo-osmolality and hyponatremia SNOMED: 29915635, 382410167 (4) Altered level of consciousness ICD Codes: R40.4 - Transient alteration of awareness SNOMED: 0987271, 394267882 (5) Cellulitis of right leg Assessment & Plan: 54-year-old male intensive care unit noted to have significant cellulitis of the right lower extremity. Bilateral lower extremity identified likely secondary to his cirrhosis hypoalbuminemia and overall medical condition potential CHF. His cellulitis of the right lower extremity with blistering and superficial skin breakdown identified. No abscess identified. Compartments are soft. Is tender but expected given examination. Pulses are palpable. No acute surgical invention at this time. Local wound dressings. Keep lower extremity elevated with pillows above the level of the heart. Will monitor closely for further breakdown worsening cellulitis or abscess formation. Antibiotics as per infectious disease. Thank you for let me participate in patient's care ICD Codes: L03.115 - Cellulitis of right lower limb SNOMED: 467020669, 984181014 (6) Encephalopathy acute ICD Codes: G93.40 - Encephalopathy, unspecified SNOMED: 09744922, 632377279 Ozzy Christensen Oct 07, 2019 14:24
--- NOTE | 2019-10-07 16:00 | Consultation ---
DATE OF CONSULTATION: 10/07/2019 PULMONARY CONSULTATION/ICU CONSULTATION CONSULTING PHYSICIAN: Kobe Alvarado MD. HISTORY OF PRESENT ILLNESS: This is a 54-year-old male who was brought in from a nursing facility with altered mental status. Patient apparently became abruptly confused. He is known to be a patient with liver cirrhosis, but typically is alert and oriented. He was normoglycemic. He was also noted to have possibly infection of his right lower extremity. Patient's home medications reviewed. It is noted he is on lactulose. CURRENT MEDICATIONS: Include norepinephrine, Rocephin, IV fluids. Patient also received cosyntropin, thiamine, and a single dose of Lasix. He is also on lactulose. REVIEW OF SYSTEMS: Not obtainable. PAST MEDICAL HISTORY: Liver cirrhosis, [facility] resident. SURGERIES: None reported. PHYSICAL EXAMINATION: GENERAL: Reveals a 54-year-old male. HEENT: Unremarkable. NEUROLOGIC: Unable to assess because of poor cooperation. CHEST: Shows decreased breath sounds bilaterally with normal heart sounds. ABDOMEN: Soft. EXTREMITIES: There is 2+ pedal edema. VITAL SIGNS: Currently supported by norepinephrine. Blood pressure is 110/80, heart rate is 100, respirations 20, he is afebrile, O2 saturation 99% on room air. LABORATORY DATA: Laboratory testing shows hemoglobin of 10, platelet count is 116. Sodium is 117, creatinine is 2.5. Bilirubin 5.2. Total ammonia level is 82. AST, ALT mildly elevated. IMPRESSION: 1. Severe hyponatremia. 2. Hyperkalemia. 3. Renal dysfunction. 4. Hyperbilirubinemia. 5. Shock, on pressors. 6. Liver cirrhosis. 7. Hepatic encephalopathy. DISCUSSION: Admit to the ICU. Patient will need 3% saline. Nephrology has been consulted. He will need pressors, broad-spectrum antibiotics. There is concern about infection of right lower extremity. ID has been consulted. Also note patient was also hypoglycemic and received D50. Patient's current condition is grim with possible hepatorenal syndrome with liver failure, hyperbilirubinemia, hypoglycemia. Prognosis is guarded. We will follow carefully. CODE STATUS: Full. Kobe Alvarado M.D. DR: KARTHIKEYAN JOB#: [id number] CC:
--- NOTE | 2019-10-07 16:23 | Cardiac Electrophysiology PN ---
Subjective Subjective [id number] Objective Last 24 Hour Vital Signs Date Time Temp Pulse Resp B/P (MAP) Pulse Ox O2 Delivery O2 Flow Rate FiO2 10/07/19 15:00 91 18 105/64 (78) 97 10/07/19 14:45 91 17 101/67 (78) 98 10/07/19 14:30 90 16 102/58 (73) 98 10/07/19 14:00 91 16 96/53 (67) 97 10/07/19 13:45 90 20 107/55 (72) 98 10/07/19 13:30 89 17 100/66 (77) 98 10/07/19 13:15 90 18 101/52 (68) 98 10/07/19 13:00 91 17 97/55 (69) 98 10/07/19 12:47 90 17 98/57 (71) 98 10/07/19 12:45 91 17 94/52 (66) 99 10/07/19 12:30 92 16 87/46 (60) 98 10/07/19 12:15 94 17 95/59 (71) 99 10/07/19 12:00 94 10/07/19 12:00 97.1 94 16 104/45 (64) 98 10/07/19 12:00 Room Air 10/07/19 11:45 93 15 96/52 (67) 99 10/07/19 11:30 92 18 101/59 (73) 98 10/07/19 11:15 89 15 95/54 (68) 99 10/07/19 11:00 88 15 102/59 (73) 99 10/07/19 10:58 87/48 10/07/19 10:45 87 19 83/30 (47) 98 10/07/19 10:30 87 19 88/52 (64) 99 10/07/19 10:00 91 18 95/37 (56) 98 10/07/19 09:30 92 18 100/85 (90) 10/07/19 09:15 100/85 10/07/19 09:00 94 17 96/68 (77) 97 10/07/19 08:30 92 18 92/46 (61) 98 10/07/19 08:00 96 15 89/66 (74) 98 10/07/19 07:39 95 10/07/19 07:30 94 17 90/43 (59) 99 7/19/20 07:00 97.4 92 14 100/53 (69) 100 10/07/19 07:00 Room Air 10/07/19 06:30 97.4 100 22 111/80 100 Room Air 10/07/19 06:00 97.3 104 18 99/80 100 Room Air 10/07/19 05:05 97.3 99 15 100/78 99 Room Air 10/07/19 04:25 97.3 99 17 111/81 100 Room Air 10/07/19 03:30 98.0 101 15 127/90 100 Room Air 10/07/19 03:00 98.0 102 19 101/77 98 Room Air 10/07/19 02:35 98.0 99 15 105/56 99 Room Air 10/07/19 01:30 100 19 Room Air 10/07/19 01:30 97.3 100 19 145/127 100 Room Air 10/07/19 01:25 98.4 88 19 99/56 (70) 97 Room Air Intake and Output 10/06/19 10/07/19 19:00 07:00 Intake Total 30 ml Output Total 405 ml Balance -375 ml Intake IV Total 30 ml Output Urine Total 405 ml Laboratory Tests Test 10/07/19 00:00 10/07/19 01:43 10/07/19 01:50 10/07/19 04:17 HIV-1 Antibody Pending HIV-2 Antibody Pending White Blood Count 10.6 K/UL (4.8-10.8) Red Blood Count 3.02 M/UL (4.70-6.10) L Hemoglobin 10.4 G/DL (14.2-18.0) L Hematocrit 29.9 % (42.0-52.0) L Mean Corpuscular Volume 99 FL (80-99) Mean Corpuscular Hemoglobin 34.6 PG (27.0-31.0) H Mean Corpuscular Hemoglobin Concent 34.9 G/DL (32.0-36.0) Red Cell Distribution Width 14.5 % (11.6-14.8) Platelet Count 116 K/UL (150-450) L Mean Platelet Volume 6.7 FL (6.5-10.1) Neutrophils (%) (Auto) 75.7 % (45.0-75.0) H Lymphocytes (%) (Auto) 8.8 % (20.0-45.0) L Monocytes (%) (Auto) 9.7 % (1.0-10.0) Eosinophils (%) (Auto) 3.4 % (0.0-3.0) H Basophils (%) (Auto) 2.4 % (0.0-2.0) H Prothrombin Time 21.8 SEC (9.30-11.50) H Prothromb Time International Ratio 2.1 (0.9-1.1) H Activated Partial Thromboplast Time 50 SEC (23-33) H Sodium Level 116 MMOL/L (136-145) *L 117 MMOL/L (136-145) *L Potassium Level 5.3 MMOL/L (3.5-5.1) H 5.4 MMOL/L (3.5-5.1) H Chloride Level 87 MMOL/L (98-107) L 89 MMOL/L (98-107) L Carbon Dioxide Level 15 MMOL/L (21-32) L 15 MMOL/L (21-32) L Anion Gap 13 mmol/L (5-15) 12 mmol/L (5-15) Blood Urea Nitrogen 48 mg/dL (7-18) H 51 mg/dL (7-18) H Creatinine 2.4 MG/DL (0.55-1.30) H 2.5 MG/DL (0.55-1.30) H Estimat Glomerular Filtration Rate 28.1 mL/min (>60) 26.8 mL/min (>60) Glucose Level 68 MG/DL (74-106) L 97 MG/DL (74-106) Calcium Level 7.5 MG/DL (8.5-10.1) L 7.4 MG/DL (8.5-10.1) L Total Bilirubin 5.2 MG/DL (0.2-1.0) H 5.2 MG/DL (0.2-1.0) H Direct Bilirubin 4.2 MG/DL (0.0-0.3) H 4.3 MG/DL (0.0-0.3) H Aspartate Amino Transf (AST/SGOT) 89 U/L (15-37) H 80 U/L (15-37) H Alanine Aminotransferase (ALT/SGPT) 8 U/L (12-78) L 20 U/L (12-78) Alkaline Phosphatase 149 U/L (46-116) H 142 U/L (46-116) H Ammonia 82 umol/L (11-32) H Troponin I 0.005 ng/mL (0.000-0.056) Pro-B-Type Natriuretic Peptide 4363 pg/mL (0-125) H Total Protein 6.5 G/DL (6.4-8.2) 6.2 G/DL (6.4-8.2) L Albumin 1.6 G/DL (3.4-5.0) L 1.5 G/DL (3.4-5.0) L Globulin 4.9 g/dL 4.7 g/dL Albumin/Globulin Ratio 0.3 (1.0-2.7) L 0.3 (1.0-2.7) L Thyroid Stimulating Hormone (TSH) 2.515 uiU/mL (0.358-3.740) Cortisol Pending Arterial Blood pH 7.336 (7.350-7.450) Arterial Blood Partial Pressure CO2 25.2 mmHg (35.0-45.0) L Arterial Blood Partial Pressure O2 75.7 mmHg (75.0-100.0) Arterial Blood HCO3 13.2 mmol/L (22.0-26.0) *L Arterial Blood Oxygen Saturation 93.8 % (95-100) L Arterial Blood Base Excess -11.2 (-2-2) *L Stefano Test Positive Urine Color Brown Urine Appearance Clear Urine pH 5 (4.5-8.0) Urine Specific [place] 1.015 (1.005-1.035) Urine Protein 1+ (NEGATIVE) H Urine Glucose (UA) Negative (NEGATIVE) Urine Ketones 2+ (NEGATIVE) H Urine Blood 2+ (NEGATIVE) H Urine Nitrite Negative (NEGATIVE) Urine Bilirubin 2+ (NEGATIVE) H Urine Ictotest Positive (NEGATIVE) Urine Urobilinogen 1 MG/DL (0.0-1.0) H Urine Leukocyte Esterase 1+ (NEGATIVE) H Urine RBC 2-4 /HPF (0 - 0) H Urine WBC 2-4 /HPF (0 - 0) Urine Squamous Epithelial Cells Occasional /LPF Urine Bacteria Occasional /HPF (NONE) Urine Hyaline Casts 10-15 /LPF (NONE) H Urine Mucus Few /LPF (NONE/OCC) H Test 10/07/19 09:30 10/07/19 11:00 Fibrinogen 246 mg/dL (200-400) Urine Osmolality 276 mOsm/kg (429-449) L Urine Random Sodium < 20 mmol/L (20-110) L Hemoglobin A1c 5.3 % (4.3-6.0) Osmolality 269 mOsm/kg (297-317) L Uric Acid 7.3 MG/DL (2.6-7.2) H Phosphorus Level 5.1 MG/DL (2.5-4.9) H Magnesium Level 1.8 MG/DL (1.8-2.4) Ferritin 607 NG/ML (8-388) H Gamma Glutamyl Transpeptidase 98 U/L (5-85) H Triglycerides Level 85 MG/DL (30-150) Cholesterol Level 59 MG/DL (< 200) LDL Cholesterol 29 mg/dL (<100) HDL Cholesterol 8 MG/DL (40-60) L Cholesterol/HDL Ratio 7.4 (3.3-4.4) H Vitamin B12 Level > 2000 PG/ML (193-986) H Folate 4.3 NG/ML (8.6-58.9) L Cortisol Pending Pending Hepatitis A IgM Antibody Pending Hepatitis B Surface Antigen Pending Hepatitis B Core IgM Antibody Pending Hepatitis C Antibody Pending HIV (1&2) Antibody Rapid Preliminary positive Javi Newby MD Oct 07, 2019 16:23
--- NOTE | 2019-10-07 16:30 | Consultation ---
DATE OF CONSULTATION: 10/07/2019 INFECTIOUS DISEASE CONSULTATION CONSULTING PHYSICIAN: Nicho Pink MD. PRIMARY ATTENDING: Fish Fairchild MD. REASON FOR CONSULT: Right foot cellulitis and possible pneumonia. HISTORY OF PRESENT ILLNESS: This is a 54-year-old male admitted today from a [facility] facility with altered mental status and confusion and history of cirrhosis. He was getting antibiotic in nursing facility for cellulitis of leg and had a PICC line. The medication he was getting for cellulitis was cefazolin. Patient is not a source of history. PAST MEDICAL HISTORY: Cirrhosis and morbid obesity. ALLERGIES: No known drug allergies. MEDICATIONS: Getting lactulose, cosyntropin, thiamine, norepinephrine. Got a dose of ceftriaxone in the ER. SOCIAL HISTORY: alf resident. . No other history is obtainable by the patient. PHYSICAL EXAMINATION: VITAL SIGNS: Temperature 97.4, pulse 95, pulse at the time of admission was 101. HEAD AND NECK: Keo conjunctivae. HEART: Normal rate. LUNGS: Clear. BREASTS: Bilateral gynecomastia. ABDOMEN: Soft. EXTREMITIES: Has severe edema of lower extremities. SKIN: Erythema, blisters in right lower extremities. LINE: Patient has left arm PICC line that was placed on nursing facility. LABORATORY DATA: WBC 10.6, hemoglobin 10.4, hematocrit 29.9, platelets 116. Sodium 117, potassium 5.4, chloride 89, bicarb 15, BUN 51, creatinine 2.5. Bilirubin 5.2, AST 80, ALT 20, alkaline phosphatase is 142. UA, leukocyte esterase 1+. Chest x-ray showed low lung volume with bronchovascular crowding, patchy left lower opacities could represent atelectasis, infectious and inflammatory process. IMPRESSION: 1. Right lower extremity cellulitis. 2. Likely pneumonia in left lung. 3. Cirrhosis of liver. 4. Acute renal failure. 5. Hyponatremia. 6. Hyperkalemia. 7. Morbid obesity. 8. Anemia. 9. Thrombocytopenia. RECOMMENDATION: We will follow up the cultures. We will try to rule out COVID-19 as a possibility and line sepsis. Presently continue with IV ceftriaxone and We will add IV vancomycin. We will obtain wound culture. At the end of my exam, I thank Dr. Fairchild for involving me in the care of this patient. Nicho Pink M.D. DR: KOLBY JOB#: [id number] CC: CL[facility]ENCE
--- NOTE | 2019-10-07 16:43 | General Progress Note ---
Assessment/Plan Assessment/Plan: Assessment - EtOH Cirrhosis - ? EtOH hepatitis based on pattern (but patient from SNF w/o reported EtOH use) - Hyponatremia - coagulopathy - LE cellulits +/- sepsis - Anemia - Hepatic encephalopathy - Preliminary HIV test (+) - edema - guarded Recommendations - lactulose - PPI - NGT feeds - Vitamin K - Normal saline --> 3% saline once intravascular vol repleated - not candidate for steroids at this time due to possible sepsis - await abd ultrasound - Check AFP - abx - poor Px Thank you Hari Bullard MD Subjective Allergies: Coded Allergies: No Known Allergies (Unverified , 10/07/19) Objective Last 24 Hour Vital Signs Date Time Temp Pulse Resp B/P (MAP) Pulse Ox O2 Delivery O2 Flow Rate FiO2 10/07/19 15:00 91 18 105/64 (78) 97 10/07/19 14:45 91 17 101/67 (78) 98 10/07/19 14:30 90 16 102/58 (73) 98 10/07/19 14:00 91 16 96/53 (67) 97 10/07/19 13:45 90 20 107/55 (72) 98 10/07/19 13:30 89 17 100/66 (77) 98 10/07/19 13:15 90 18 101/52 (68) 98 10/07/19 13:00 91 17 97/55 (69) 98 10/07/19 12:47 90 17 98/57 (71) 98 10/07/19 12:45 91 17 94/52 (66) 99 10/07/19 12:30 92 16 87/46 (60) 98 10/07/19 12:15 94 17 95/59 (71) 99 10/07/19 12:00 94 10/07/19 12:00 97.1 94 16 104/45 (64) 98 10/07/19 12:00 Room Air 10/07/19 11:45 93 15 96/52 (67) 99 10/07/19 11:30 92 18 101/59 (73) 98 10/07/19 11:15 89 15 95/54 (68) 99 10/07/19 11:00 88 15 102/59 (73) 99 10/07/19 10:58 87/48 10/07/19 10:45 87 19 83/30 (47) 98 10/07/19 10:30 87 19 88/52 (64) 99 10/07/19 10:00 91 18 95/37 (56) 98 10/07/19 09:30 92 18 100/85 (90) 10/07/19 09:15 100/85 10/07/19 09:00 94 17 96/68 (77) 97 10/07/19 08:30 92 18 92/46 (61) 98 10/07/19 08:00 96 15 89/66 (74) 98 10/07/19 07:39 95 10/07/19 07:30 94 17 90/43 (59) 99 10/07/19 07:00 97.4 92 14 100/53 (69) 100 10/07/19 07:00 Room Air 10/07/19 06:30 97.4 100 22 111/80 100 Room Air 10/07/19 06:00 97.3 104 18 99/80 100 Room Air 10/07/19 05:05 97.3 99 15 100/78 99 Room Air 10/07/19 04:25 97.3 99 17 111/81 100 Room Air 10/07/19 03:30 98.0 101 15 127/90 100 Room Air 10/07/19 03:00 98.0 102 19 101/77 98 Room Air 10/07/19 02:35 98.0 99 15 105/56 99 Room Air 10/07/19 01:30 100 19 Room Air 10/07/19 01:30 97.3 100 19 145/127 100 Room Air 10/07/19 01:25 98.4 88 19 99/56 (70) 97 Room Air Intake and Output 10/06/19 10/07/19 19:00 07:00 Intake Total 30 ml Output Total 405 ml Balance -375 ml Intake IV Total 30 ml Output Urine Total 405 ml Laboratory Tests 10/07/19 00:00: HIV-1 Antibody [Pending], HIV-2 Antibody [Pending] 10/07/19 01:43: White Blood Count 10.6, Red Blood Count 3.02L, Hemoglobin 10.4L, Hematocrit 29.9L, Mean Corpuscular Volume 99, Mean Corpuscular Hemoglobin 34.6H, Mean Corpuscular Hemoglobin Concent 34.9, Red Cell Distribution Width 14.5, Platelet Count 116L, Mean Platelet Volume 6.7, Neutrophils (%) (Auto) 75.7H, Lymphocytes (%) (Auto) 8.8L, Monocytes (%) (Auto) 9.7, Eosinophils (%) (Auto) 3.4H, Basophils (%) (Auto) 2.4H, Prothrombin Time 21.8H, Prothromb Time International Ratio 2.1H, Activated Partial Thromboplast Time 50H, Sodium Level 116*L, Potassium Level 5.3H, Chloride Level 87L, Carbon Dioxide Level 15L, Anion Gap 13 , Blood Urea Nitrogen 48H, Creatinine 2.4H, Estimat Glomerular Filtration Rate 28.1, Glucose Level 68L, Calcium Level 7.5L, Total Bilirubin 5.2H, Direct Bilirubin 4.2H, Aspartate Amino Transf (AST/SGOT) 89H, Alanine Aminotransferase (ALT/SGPT) 8L, Alkaline Phosphatase 149H, Ammonia 82H, Troponin I 0.005, Pro-B- Type Natriuretic Peptide 4363H, Total Protein 6.5, Albumin 1.6L, Globulin 4.9, Albumin/Globulin Ratio 0.3L, Thyroid Stimulating Hormone (TSH) 2.515, Cortisol [ Pending] 10/07/19 01:50: Arterial Blood pH 7.336L, Arterial Blood Partial Pressure CO2 25.2L, Arterial Blood Partial Pressure O2 75.7, Arterial Blood HCO3 13.2*L, Arterial Blood Oxygen Saturation 93.8L, Arterial Blood Base Excess -11.2*L, Stefano Test Positive 10/07/19 04:17: Sodium Level 117*L, Potassium Level 5.4H, Chloride Level 89L, Carbon Dioxide Level 15L, Anion Gap 12, Blood Urea Nitrogen 51H, Creatinine 2.5H, Estimat Glomerular Filtration Rate 26.8, Glucose Level 97, Calcium Level 7.4L, Total Bilirubin 5.2H, Direct Bilirubin 4.3H, Aspartate Amino Transf (AST/SGOT) 80H, Alanine Aminotransferase (ALT/SGPT) 20, Alkaline Phosphatase 142H, Total Protein 6.2L, Albumin 1.5L, Globulin 4.7, Albumin/Globulin Ratio 0.3L, Urine Color Brown, Urine Appearance Clear, Urine pH 5, Urine Specific [place] 1.015, Urine Protein 1+H, Urine Glucose (UA) Negative, Urine Ketones 2+H, Urine Blood 2 +H, Urine Nitrite Negative, Urine Bilirubin 2+H, Urine Ictotest Positive, Urine Urobilinogen 1H, Urine Leukocyte Esterase 1+H, Urine RBC 2-4H, Urine WBC 2-4, Urine Squamous Epithelial Cells Occasional, Urine Bacteria Occasional, Urine Hyaline Casts 10-15H, Urine Mucus FewH 10/07/19 09:30: Fibrinogen 246, Urine Osmolality 276L, Urine Random Sodium < 20L, Hemoglobin A1c 5.3, Osmolality 269L, Uric Acid 7.3H, Phosphorus Level 5.1H, Magnesium Level 1.8, Ferritin 607H, Gamma Glutamyl Transpeptidase 98H, Triglycerides Level 85, Cholesterol Level 59, LDL Cholesterol 29, HDL Cholesterol 8L, Cholesterol/HDL Ratio 7.4H, Vitamin B12 Level > 2000H, Folate 4.3L, Cortisol [ Pending], Hepatitis A IgM Antibody [Pending], Hepatitis B Surface Antigen [ Pending], Hepatitis B Core IgM Antibody [Pending], Hepatitis C Antibody [Pending ], HIV (1&2) Antibody Rapid Preliminary positiveH 10/07/19 11:00: Cortisol [Pending] Height (Feet): 5 Height (Inches): 7.00 Weight (Pounds): 300 Hari Bullard MD Oct 07, 2019 16:43
[2019-10-07] MEDS ORDERED: Pantoprazole Inj IVP SCH ×2 (16:45→21:00)
[2019-10-07] MEDS ORDERED: Dyna-Hex 2% Top Sol 2oz TOPIC SCH (20:00)
--- NOTE | 2019-10-07 20:00 | Consultation ---
DATE OF CONSULTATION: 10/07/2019 CARDIOLOGY CONSULTATION CONSULTING PHYSICIAN: Javi Newby MD. REFERRING PHYSICIAN: Fish Fairchild MD. REASON FOR CONSULTATION: Hypotension. HISTORY OF PRESENT ILLNESS: This is a 54-year-old gentleman with history of liver cirrhosis and penitentiary resident, who was brought in for altered mental status. Patient became little bit confused. Patient has liver cirrhosis due to alcohol and is typically oriented. Patient was normoglycemic. possible infection of right lower extremity. Patient subsequently became hypotensive and was transferred to intensive care unit and started on Levophed. At the time of my evaluation, patient is altered in intensive care unit, is not able to provide any information. REVIEW OF SYSTEMS: Cannot be obtained. PAST MEDICAL HISTORY: As mentioned above. FAMILY HISTORY: Noncontributory. SOCIAL HISTORY: He is a penitentiary resident. Has history of alcohol drinking. PHYSICAL EXAMINATION: VITAL SIGNS: Show blood pressure is 104/64, pulse 94, respirations 18. HEAD AND NECK: Shows no JVD. LUNGS: Decreased breath sounds. CARDIOVASCULAR: Regular S1 and S2 with no gallop. ABDOMEN: Soft. EXTREMITIES: 2+ pitting edema. LABORATORY AND DIAGNOSTIC DATA: His labs show white count 10.2, hemoglobin 10.4, hematocrit 30, and platelet count 116. Sodium is 117, potassium is 5.4, BUN of 51, creatinine 2.5, and glucose of 97. Troponin negative. BNP is 4363. ASSESSMENT AND PLAN: 1. Hypotension, likely due to sepsis cirrhosis. Patient received normal saline. Sodium was only 116 and he is also on Levophed. We will get echocardiogram for further evaluation. 2. Profound hyponatremia. Patient is on saline per Dr. Fuentes. 3. Sepsis, on vancomycin and ceftriaxone. 4. History of alcohol use, on thiamine and folate. 5. Cirrhosis of liver, on lactulose. Thank you very much for allowing me to participate in the care of this patient. Please do not hesitate to contact me for any questions regarding my evaluation. Javi Newby M.D. : TOR JOB#: [id number] CC:
--- NOTE | 2019-10-07 22:15 | Consultation ---
DATE OF CONSULTATION: 10/07/2019 GASTROENTEROLOGY CONSULTATION CONSULTING PHYSICIAN: Hari Bullard MD. CHIEF COMPLAINT: I was asked to see this patient by Dr. Fish Fairchild for evaluation of cirrhosis. HISTORY OF PRESENT ILLNESS: Patient is a 54-year-old man, who comes in from a [facility] with sepsis and severe metabolic derangements. The patient is confused and unable to provide any history. Most of the information is only available from the chart. The case was also discussed with patient's family. Patient does have a longstanding history of alcoholism and has a known history of alcoholic cirrhosis. He was last admitted to an outside hospital and after his stay there, he was transferred to a [facility] for care. He was transferred last night from the [facility] due to altered mental status and in the emergency room here, he was found to have severe hyponatremia as well as renal failure and encephalopathy. Patient is in ICU right now, in isolation. Patient was examined with the nurse at bedside. PAST MEDICAL HISTORY: History of alcoholic cirrhosis. FAMILY HISTORY: Noncontributory. SOCIAL HISTORY: Patient has a history of both smoking and drinking. His family looks after his affairs and they are aware that he is in the hospital. MEDICATIONS: See the chart list for details. REVIEW OF SYSTEMS: According to the nursing staff at the [facility], he has not been drinking there while he has been there since 09/25/2019. PHYSICAL EXAMINATION: GENERAL: Debilitated, confused, obese man, seen in the ICU. HEENT: Normocephalic and atraumatic. There is some mild scleral icterus. NECK: Supple. CHEST: Clear to auscultation. CARDIOVASCULAR: Revealed a regular rate. ABDOMEN: Obese, soft without obvious tenderness. There may be some degree of ascites, but obesity precluded reliable exam. EXTREMITIES: Revealed 2+ edema bilaterally with blister, which had ruptured in the right lower extremity with some surrounding erythema suggestive of cellulitis. LABORATORY DATA: Noted and remarkable findings were sodium of 116 on admission with a bicarb of 15, creatinine of 2.4. Total bilirubin of 5.2. AST and ALT are 89 and respectively. Ammonia of 82. ASSESSMENT: This patient presents with severe metabolic derangements as well as encephalopathy and lower extremity cellulitis and possibly sepsis and shock. He is in critical condition and will need to be observed closely at the intensive care unit. he can be volume resuscitated with saline based product also to increase his blood volume and also to improve his sodium. Once his blood volume has been restored and he has been becoming hemodynamically stable, the IV fluids can be changed to 3% saline to avoid excess fluid overload. The patient should receive lactulose, seems confused and he has an elevated ammonia and has clinical hepatic encephalopathy. If needed, Xifaxan can be added later if he remains encephalopathic. In addition, I will add Protonix for prophylaxis since he is likely at a high risk for gastrointestinal bleeding. Nasogastric tube was in place and therefore, tube feeding can be given to avoid nutritional compromise. Patient's electrolytes and sodium can be monitored and concentrated tube feeding formula can be given to minimize free water intake. Thiamine has already been written for the patient, which is appropriate. The patient's pattern of transaminases is suggestive of alcoholic hepatitis, although he has not drank recently. Nonetheless, he may have some degree of alcoholic hepatitis from his prior to admission in the hospital. He would conceivably benefit from prednisone, but at this time there is concern about sepsis given his vital signs and his cellulitis. I will wait for his blood cultures first and then consider a course of prednisone for presumed alcoholic hepatitis. I will also check his admission laboratories for alcohol level to rule out any use of alcohol while in the [facility] without the nursing head staff's knowledge. RECOMMENDATIONS: Per above discussion and per orders written in the chart. Thank you for asking me to participate in the care of this patient. Hari Bullard M.D. DR: DANIEL JOB#: [id number] CC:
[2019-10-08] VITALS (39 sets, daily range): BP systolic 51–173; BP diastolic 13–51
[2019-10-08] MEDS: D5NS 1,000 ML IV SCH (01:52)
[2019-10-08] MEDS: Norepinephrine Premix 4mg/NS 250mL IV SCH ×2 (03:15→06:16)
[2019-10-08 04:34] LABS: HEMATOCRIT 32.8 % (42.0-52.0); HEMOGLOBIN 10.8 G/DL (14.2-18.0); MEAN CORPUSCULAR VOLUME 105 FL (80-99); PLATELET COUNT 94 K/UL (150-450); RED BLOOD COUNT 3.14 M/UL (4.70-6.10); RED CELL DISTRIBUTION WIDTH 15.5 % (11.6-14.8)
[2019-10-08 04:42] LABS: WHITE BLOOD COUNT 36.9 K/UL (4.8-10.8)
[2019-10-08 04:52] LABS: AMMONIA 101 umol/L (11-32)
[2019-10-08 05:14] LABS: ALANINE AMINOTRANSFERASE 85 U/L (12-78); ALBUMIN 1.6 G/DL (3.4-5.0); ALBUMIN/GLOBULIN RATIO 0.3 (1.0-2.7); ALKALINE PHOSPHATASE 228 U/L (46-116); ANION GAP 17 mmol/L (5-15); ASPARTATE AMINO TRANSFERASE 821 U/L (15-37); BILIRUBIN,TOTAL 6.7 MG/DL (0.2-1.0); BLOOD UREA NITROGEN 57 mg/dL (7-18); CARBON DIOXIDE 12 MMOL/L (21-32); CHLORIDE 90 MMOL/L (98-107); CREATININE 3.3 MG/DL (0.55-1.30); PHOSPHORUS 7.2 MG/DL (2.5-4.9)
[2019-10-08 05:22] LABS: POTASSIUM 6.7 MMOL/L (3.5-5.1); SODIUM 119 MMOL/L (136-145)
[2019-10-08 06:07] LABS: BILIRUBIN,DIRECT 5.4 MG/DL (0.0-0.3)
[2019-10-08] MEDS ORDERED: Sodium Polystyrene Sulfonate 15gm Powder NG SCH (06:30)
[2019-10-08] MEDS ORDERED: Sodium Bicarbonate 50ml Carp IV SCH (06:45)
--- NOTE | 2019-10-08 07:02 | General Progress Note ---
Assessment/Plan Problem List: (1) Encephalopathy acute ICD Codes: G93.40 - Encephalopathy, unspecified SNOMED: 77931371, 391737686 (2) Cellulitis of right leg ICD Codes: L03.115 - Cellulitis of right lower limb SNOMED: 787515485, 365621635 (3) Altered level of consciousness ICD Codes: R40.4 - Transient alteration of awareness SNOMED: 3828499, 804249156 (4) Hyponatremia ICD Codes: E87.1 - Hypo-osmolality and hyponatremia SNOMED: 93773892, 879348030 (5) Hypoglycemia ICD Codes: E16.2 - Hypoglycemia, unspecified SNOMED: 885811353, 020007382 (6) Cirrhosis ICD Codes: K74.60 - Unspecified cirrhosis of liver SNOMED: 41771602, 747023995 Assessment/Plan: Cortrosyn stimulation performed yesterday - results pending continue to monitor glucose without insulin administration hypoglycemia protocol in order Subjective ROS Limited/Unobtainable: Yes Allergies: Coded Allergies: No Known Allergies (Unverified , 10/07/19) Subjective events noted glucose values are mostly stable Item Value Date Time Bedside Blood Glucose 61 mg/dl L 10/08/19 0600 Bedside Blood Glucose 100 mg/dl 10/08/19 0000 Bedside Blood Glucose 116 mg/dl 10/07/19 1800 Bedside Blood Glucose 135 mg/dl H 10/07/19 1200 Bedside Blood Glucose 106 mg/dl 10/07/19 0511 Bedside Blood Glucose 107 mg/dl 10/07/19 0205 Objective Last 24 Hour Vital Signs Date Time Temp Pulse Resp B/P (MAP) Pulse Ox O2 Delivery O2 Flow Rate FiO2 10/08/19 06:16 85/30 10/08/19 05:45 41 15 55/21 (32) 79 10/08/19 05:43 60 21 57/27 (37) 86 10/08/19 05:39 77 27 56/21 (33) 91 10/08/19 05:33 82 27 62/21 (35) 91 10/08/19 05:30 88 27 61/26 (38) 93 10/08/19 05:28 86 27 69/25 (40) 93 10/08/19 05:15 93 26 72/30 (44) 93 10/08/19 05:00 91 27 80/30 (47) 92 7/20/20 04:45 87 27 84/22 (42) 92 7/20/20 04:31 95 28 86/38 (54) 92 7/20/20 04:30 95 28 73/22 (39) 93 7/20/20 04:27 97 27 75/42 (53) 93 7/20/20 04:26 96 28 76/37 (50) 93 7/20/20 04:25 97 28 82/35 (51) 93 7/20/20 04:21 96 44 81/38 (52) 92 7/20/20 04:15 99.3 98 48 80/31 (47) 93 7/20/20 04:00 98 44 83/29 (47) 92 7/20/20 03:45 96 46 79/41 (54) 93 7/20/20 03:30 96 50 89/31 (50) 93 7/20/20 03:16 97 51 94/48 (63) 93 7/20/20 03:15 85/30 7/20/20 03:00 104 34 92/23 (46) 94 7/20/20 02:30 104 34 92/23 (46) 94 7/20/20 02:00 102 28 87/23 (44) 94 7/20/20 01:30 97.8 100 27 87/51 (63) 94 7/20/20 01:00 102 26 85/22 (43) 94 7/20/20 00:30 102 26 82/22 (42) 94 7/20/20 00:00 Room Air 7/20/20 00:00 102 26 82/22 (42) 94 7/19/20 23:30 101 26 90/42 (58) 95 7/19/20 23:00 103 26 91/42 (58) 95 7/19/20 22:30 104 26 90/47 (61) 95 7/19/20 22:00 103 26 92/52 (65) 95 7/19/20 21:53 98/56 7/19/20 21:30 103 27 100/60 (73) 95 7/19/20 21:00 102 27 100/52 (68) 96 7/19/20 20:30 102 27 97/58 (71) 96 7/19/20 20:00 90 7/19/20 20:00 98.6 101 25 110/36 (60) 96 10/07/19 20:00 Room Air 10/07/19 19:30 100 24 105/42 (63) 97 10/07/19 19:00 99 23 92/42 (59) 97 10/07/19 18:30 98 22 102/54 (70) 97 10/07/19 18:00 97 21 108/69 (82) 97 10/07/19 17:30 97 22 95/41 (59) 97 10/07/19 17:00 97.0 91 21 97/50 (66) 97 10/07/19 16:30 92 19 96/49 (65) 97 10/07/19 16:00 Room Air 10/07/19 16:00 90 10/07/19 16:00 95.0 91 18 101/52 (68) 98 10/07/19 15:30 92 18 99/59 (72) 98 10/07/19 15:00 91 18 105/64 (78) 97 10/07/19 14:45 91 17 101/67 (78) 98 10/07/19 14:30 90 16 102/58 (73) 98 10/07/19 14:00 91 16 96/53 (67) 97 10/07/19 13:45 90 20 107/55 (72) 98 10/07/19 13:30 89 17 100/66 (77) 98 10/07/19 13:15 90 18 101/52 (68) 98 10/07/19 13:00 91 17 97/55 (69) 98 10/07/19 12:47 90 17 98/57 (71) 98 10/07/19 12:45 91 17 94/52 (66) 99 10/07/19 12:30 92 16 87/46 (60) 98 10/07/19 12:15 94 17 95/59 (71) 99 10/07/19 12:00 94 10/07/19 12:00 97.1 94 16 104/45 (64) 98 10/07/19 12:00 Room Air 10/07/19 11:45 93 15 96/52 (67) 99 10/07/19 11:30 92 18 101/59 (73) 98 10/07/19 11:15 89 15 95/54 (68) 99 10/07/19 11:00 88 15 102/59 (73) 99 10/07/19 10:58 87/48 10/07/19 10:45 87 19 83/30 (47) 98 10/07/19 10:30 87 19 88/52 (64) 99 10/07/19 10:30 88 19 88/41 (57) 98 10/07/19 10:15 89 18 98 10/07/19 10:00 91 18 95/37 (56) 98 10/07/19 10:00 91 18 95/37 (56) 98 10/07/19 09:45 92 15 10/07/19 09:32 92 18 100/85 (90) 10/07/19 09:30 92 18 100/85 (90) 10/07/19 09:30 91 17 89/69 (76) 10/07/19 09:15 92 17 97 10/07/19 09:15 100/85 10/07/19 09:02 94 17 96/68 (77) 97 10/07/19 09:00 94 15 97 10/07/19 09:00 94 17 96/68 (77) 97 10/07/19 08:45 93 16 97 10/07/19 08:30 92 18 92/46 (61) 98 10/07/19 08:30 92 18 92/46 (61) 98 10/07/19 08:15 95 16 86 10/07/19 08:00 96 15 89/66 (74) 98 10/07/19 08:00 96 15 89/66 (74) 98 10/07/19 07:39 95 10/07/19 07:30 94 17 90/43 (59) 99 10/07/19 07:30 94 17 90/43 (59) 99 10/07/19 07:15 92 14 100/53 (69) 100 10/07/19 07:10 91 17 91/52 (65) 100 10/07/19 07:08 91 18 84/40 (55) 99 Intake and Output 10/07/19 10/08/19 19:00 07:00 Intake Total 1978.50 ml 1325.0 ml Output Total 25 ml 60 ml Balance 1953.50 ml 1265.0 ml Intake IV Total 1978.50 ml 1325.0 ml Output Urine Total 25 ml 60 ml Laboratory Tests 10/07/19 09:30: Fibrinogen 246, Urine Osmolality 276L, Urine Random Sodium < 20L, Hemoglobin A1c 5.3, Osmolality 269L, Uric Acid 7.3H, Phosphorus Level 5.1H, Magnesium Level 1.8, Ferritin 607H, Gamma Glutamyl Transpeptidase 98H, Triglycerides Level 85, Cholesterol Level 59, LDL Cholesterol 29, HDL Cholesterol 8L, Cholesterol/HDL Ratio 7.4H, Vitamin B12 Level > 2000H, Folate 4.3L, Cortisol [ Pending], Hepatitis A IgM Antibody [Pending], Hepatitis B Surface Antigen [ Pending], Hepatitis B Core IgM Antibody [Pending], Hepatitis C Antibody [Pending ], HIV (1&2) Antibody Rapid Preliminary positiveH 10/07/19 11:00: Cortisol [Pending] 10/07/19 18:15: Serum Alcohol < 3 10/08/19 03:37: Uric Acid 8.1H, Phosphorus Level 7.2H, Magnesium Level 2.0, White Blood Count 36.9#*H, Red Blood Count 3.14L, Hemoglobin 10.8L, Hematocrit 32.8L, Mean Corpuscular Volume 105H, Mean Corpuscular Hemoglobin 34.2H, Mean Corpuscular Hemoglobin Concent 32.7, Red Cell Distribution Width 15.5H, Platelet Count 94L, Mean Platelet Volume 6.6, Neutrophils (%) (Auto) , Lymphocytes (%) (Auto) , Monocytes (%) (Auto) , Eosinophils (%) (Auto) , Basophils (%) (Auto) , Neutrophils % (Manual) [Pending], Lymphocytes % (Manual) [Pending], Platelet Estimate [Pending], Platelet Morphology [Pending], Sodium Level 119*L, Potassium Level 6.7*H, Chloride Level 90L, Carbon Dioxide Level 12L, Anion Gap 17H, Blood Urea Nitrogen 57H, Creatinine 3.3H, Estimat Glomerular Filtration Rate 19.5, Glucose Level 69L, Calcium Level 8.0L, Total Bilirubin 6.7H, Direct Bilirubin 5.4H, Aspartate Amino Transf (AST/SGOT) 821H, Alanine Aminotransferase (ALT/SGPT) 85H, Alkaline Phosphatase 228H, Ammonia 101H, Troponin I 0.000, C-Reactive Protein, Quantitative 17.1H, Pro-B-Type Natriuretic Peptide 49861F, Total Protein 6.6, Albumin 1.6L, Globulin 5.0, Albumin/Globulin Ratio 0.3L, Thyroid Stimulating Hormone (TSH) 1.521, Free Thyroxine 0.72L, Random Vancomycin Level 16.9 10/08/19 06:14: Arterial Blood pH 6.940*L, Arterial Blood Partial Pressure CO2 32.9L, Arterial Blood Partial Pressure O2 155.2H, Arterial Blood HCO3 6.9*L, Arterial Blood Oxygen Saturation 97.7, Arterial Blood Base Excess -24.2*L, Stefano Test Positive Height (Feet): 5 Height (Inches): 7.00 Weight (Pounds): 300 General Appearance: lethargic Neck: normal alignment Cardiovascular: normal rate Respiratory/Chest: decreased breath sounds Abdomen: normal bowel sounds Objective Current Medications Medications (Trade) Dose Ordered Sig/Adelita Route PRN Reason Start Time Stop Time Status Last Admin Dose Admin Albumin Human 100 ml @ 100 mls/hr ONCE ONCE IV 10/08/19 06:30 10/08/19 07:29 10/08/19 06:47 Ceftriaxone Sodium 1 gm/ Dextrose 55 ml @ 110 mls/hr Q24H IVPB 10/07/19 10:00 10/14/19 09:59 10/07/19 10:39 Chlorhexidine Gluconate (Liliana-Hex 2%) 1 applic DAILY@2000 TOPIC 10/07/19 20:00 01/05/20 19:59 10/07/19 21:06 Dextrose 1,000 ml @ 50 mls/hr Q20H IV 10/08/19 08:00 11/07/19 07:59 Dextrose (Dextrose 50%) 25 ml Q30M PRN IV Hypoglycemia 10/07/19 09:00 01/05/20 08:59 Dextrose (Dextrose 50%) 50 ml Q30M PRN IV Hypoglycemia 10/07/19 09:00 01/05/20 08:59 10/08/19 06:00 Folic Acid (Folate) 5 mg DAILY NG 10/08/19 09:00 11/07/19 08:59 Furosemide (Lasix) 20 mg ONCE IV 10/08/19 06:30 10/08/19 08:00 Lactulose (Cephulac) 30 gm FOUR TIMES A DAY ORAL 10/07/19 13:00 11/06/19 08:59 10/07/19 21:08 Norepinephrine Bitartrate 250 ml @ 0 mls/hr Q24H IV 10/07/19 09:15 01/05/20 09:14 10/08/19 06:16 Pantoprazole (Protonix) 40 mg Q12HR IVP 10/08/19 09:00 11/06/19 20:59 Sodium Polystyrene Sulfonate (Kayexalate) 60 gm ONCE NG 10/08/19 06:30 10/08/19 08:00 Sodium Bicarbonate (Sodium Bicarbonate) 100 ml ONCE IV 10/08/19 06:45 10/08/19 08:00 Sodium Chloride 500 ml @ 30 mls/hr ONCE ONCE IV 10/08/19 08:00 10/09/19 00:39 Thiamine HCl 100 mg/Dextrose 56 ml @ 112 mls/hr Q24H IVPB 10/07/19 10:00 11/06/19 09:59 10/07/19 10:38 Vancomycin HCl ([facility] pharmacy to dose) 1 ea DAILY PRN MISC Per rx protocol 10/07/19 10:00 11/06/19 09:59 Nicola Soria MD Oct 08, 2019 07:02
[2019-10-08] MEDS ORDERED: Phytonadione 10 mg/mL 1ml amp SUBQ SCH (07:15)
[2019-10-08] MEDS ORDERED: NaCl 3% 500ml 500 ML IV ONE (08:00)
[2019-10-08] MEDS ORDERED: Dextrose 10% 1,000 ML IV SCH (08:00)
[2019-10-08] MEDS ORDERED: Norepinephrine Bitartrate 8 MG in D5W 500ml 550 ML IV SCH (08:15)
[2019-10-08] MEDS: Lactulose 20gm/30ml UDC ORAL SCH (09:00)
[2019-10-08] MEDS ORDERED: Pantoprazole Inj IVP SCH (09:00)
[2019-10-08] MEDS: cefTRIAXone 1 GM in D5W 55 ML IVPB SCH (09:20)
[2019-10-08] MEDS: Thiamine HCl 100 MG in D5W 55 ML IVPB SCH (09:20)
[2019-10-08] MEDS ORDERED: Sodium Bicarbonate 50ml Carp ONE (09:40)
[2019-10-08] MEDS ORDERED: Calcium Chloride 10% 10ml carpuject IVP ONE (09:40)
[2019-10-08] MEDS ORDERED: Magnesium Sulfate 2ml Inj ONE (09:40)
[2019-10-08] MEDS ORDERED: Phenylephrine 100 MG in NS 240 ML IV SCH (10:00)
[2019-10-08] MEDS ORDERED: D5NS 1000ml IV ONE (10:01)
[2019-10-08] MEDS ORDERED: Tubing IV Secondary IV ONE (10:01)
[2019-10-08] MEDS ORDERED: NS 275ml ONE (10:01)
[2019-10-08] MEDS ORDERED: D5 1/2NS 1000ml IV ONE ×2 (10:01)
--- NOTE | 2019-10-08 10:02 | Nephrology Progress Note ---
Assessment/Plan Problem List: (1) TWIN (acute kidney injury) (2) Septic shock (3) Hyperkalemia (4) Metabolic acidosis (5) Cirrhosis of liver Assessment: Severe hypoalbuminemia (6) Alcoholic liver disease (7) Hyponatremia Assessment: Severe third spacing (8) Hypoglycemia (9) Encephalopathy acute Assessment: Hepatic, toxic metabolic, Plan Patient seen in ICU at 9:30 AM. Discussed with IVANNA Sheets. Patient acidotic, hypotensive, on max pressor. Patient received IV fluid and 3% saline in addition to albumin and IV sodium bicarb. He also received Kayexalate Patient doing poorly. White blood cells over 30,000. Patient is doing poorly. At this point hemodynamically unstable for dialysis treatment. Discussed with PMD and converter supervisor. Suggest to discuss with family for comfort care as patient's condition does not appear to be reversible. Next round of blood work and ABG at 10 AM Subjective ROS Limited/Unobtainable: Yes Objective Objective Last 24 Hour Vital Signs Date Time Temp Pulse Resp B/P (MAP) Pulse Ox O2 Delivery O2 Flow Rate FiO2 10/08/19 06:16 85/30 10/08/19 05:45 41 15 55/21 (32) 79 10/08/19 05:43 60 21 57/27 (37) 86 10/08/19 05:39 77 27 56/21 (33) 91 10/08/19 05:33 82 27 62/21 (35) 91 10/08/19 05:30 88 27 61/26 (38) 93 10/08/19 05:28 86 27 69/25 (40) 93 10/08/19 05:15 93 26 72/30 (44) 93 10/08/19 05:00 91 27 80/30 (47) 92 10/08/19 04:45 87 27 84/22 (42) 92 10/08/19 04:31 95 28 86/38 (54) 92 10/08/19 04:30 95 28 73/22 (39) 93 10/08/19 04:27 97 27 75/42 (53) 93 10/08/19 04:26 96 28 76/37 (50) 93 10/08/19 04:25 97 28 82/35 (51) 93 10/08/19 04:21 96 44 81/38 (52) 92 7/20/20 04:15 99.3 98 48 80/31 (47) 93 7/20/20 04:00 Room Air 72020 04:00 98 44 83/29 (47) 92 7/2020 04:00 50 7/20/20 03:45 96 46 79/41 (54) 93 7/20/20 03:30 96 50 89/31 (50) 93 72020 03:16 97 51 94/48 (63) 93 72020 03:15 85/30 720/20 03:00 104 34 92/23 (46) 94 7/2020 02:30 104 34 92/23 (46) 94 72020 02:00 102 28 87/23 (44) 94 7/2020 01:30 97.8 100 27 87/51 (63) 94 7/20/20 01:00 102 26 85/22 (43) 94 7/20/20 00:30 102 26 82/22 (42) 94 7/2020 00:00 Room Air 72020 00:00 102 26 82/22 (42) 94 7/19/20 23:30 101 26 90/42 (58) 95 7/19/20 23:00 103 26 91/42 (58) 95 7/19/20 22:30 104 26 90/47 (61) 95 7/19/20 22:00 103 26 92/52 (65) 95 7/19/20 21:53 98/56 7/19/20 21:30 103 27 100/60 (73) 95 7/19/20 21:00 102 27 100/52 (68) 96 7/19/20 20:30 102 27 97/58 (71) 96 7/19/20 20:00 90 7/19/20 20:00 98.6 101 25 110/36 (60) 96 7/19/20 20:00 Room Air 7/19/20 19:30 100 24 105/42 (63) 97 7/19/20 19:00 99 23 92/42 (59) 97 7/19/20 18:30 98 22 102/54 (70) 97 7/19/20 18:00 97 21 108/69 (82) 97 7/19/20 17:30 97 22 95/41 (59) 97 7/19/20 17:00 97.0 91 21 97/50 (66) 97 720 16:30 92 19 96/49 (65) 97 720 16:00 Room Air 720 16:00 90 7/20 16:00 95.0 91 18 101/52 (68) 98 7//20 15:30 92 18 99/59 (72) 98 7/20 15:00 91 18 105/64 (78) 97 7/20 14:45 91 17 101/67 (78) 98 7//20 14:30 90 16 102/58 (73) 98 7/20 14:00 91 16 96/53 (67) 97 7/20 13:45 90 20 107/55 (72) 98 7//20 13:30 89 17 100/66 (77) 98 7//20 13:15 90 18 101/52 (68) 98 720 13:00 91 17 97/55 (69) 98 720 12:47 90 17 98/57 (71) 98 720 12:45 91 17 94/52 (66) 99 720 12:30 92 16 87/46 (60) 98 720 12:15 94 17 95/59 (71) 99 720 12:00 94 720 12:00 97.1 94 16 104/45 (64) 98 720 12:00 Room Air 10/07/19 11:45 93 15 96/52 (67) 99 720 11:30 92 18 101/59 (73) 98 7/20 11:15 89 15 95/54 (68) 99 7/19/20 11:00 88 15 102/59 (73) 99 7/20 10:58 87/48 7/20 10:45 87 19 83/30 (47) 98 7/19/20 10:30 87 19 88/52 (64) 99 7//20 10:30 88 19 88/41 (57) 98 7/20 10:15 89 18 98 7/19/20 10:00 91 18 95/37 (56) 98 7/19/20 10:00 91 18 95/37 (56) 98 Intake and Output 10/07/19 10/08/19 19:00 07:00 Intake Total 1978.50 ml 1325.0 ml Output Total 25 ml 60 ml Balance 1953.50 ml 1265.0 ml Intake IV Total 1978.50 ml 1325.0 ml Output Urine Total 25 ml 60 ml Laboratory Tests 10/07/19 11:00: Cortisol [Pending] 10/07/19 18:15: Serum Alcohol < 3 10/08/19 03:37: White Blood Count 36.9#*H, Red Blood Count 3.14L, Hemoglobin 10.8L, Hematocrit 32.8L, Mean Corpuscular Volume 105H, Mean Corpuscular Hemoglobin 34.2H, Mean Corpuscular Hemoglobin Concent 32.7, Red Cell Distribution Width 15.5H, Platelet Count 94L, Mean Platelet Volume 6.6, Neutrophils (%) (Auto) , Lymphocytes (%) (Auto) , Monocytes (%) (Auto) , Eosinophils (%) (Auto) , Basophils (%) (Auto) , Neutrophils % (Manual) [Pending], Lymphocytes % (Manual) [Pending], Platelet Estimate [Pending], Platelet Morphology [Pending], Sodium Level 119*L, Potassium Level 6.7*H, Chloride Level 90L, Carbon Dioxide Level 12L , Anion Gap 17H, Blood Urea Nitrogen 57H, Creatinine 3.3H, Estimat Glomerular Filtration Rate 19.5, Glucose Level 69L, Uric Acid 8.1H, Calcium Level 8.0L, Phosphorus Level 7.2H, Magnesium Level 2.0, Total Bilirubin 6.7H, Direct Bilirubin 5.4H, Aspartate Amino Transf (AST/SGOT) 821H, Alanine Aminotransferase (ALT/SGPT) 85H, Alkaline Phosphatase 228H, Ammonia 101H, Troponin I 0.000, C-Reactive Protein, Quantitative 17.1H, Pro-B-Type Natriuretic Peptide 40884G, Total Protein 6.6, Albumin 1.6L, Globulin 5.0, Albumin/Globulin Ratio 0.3L, Thyroid Stimulating Hormone (TSH) 1.521, Free Thyroxine 0.72L, Random Vancomycin Level 16.9 10/08/19 06:14: Arterial Blood pH 6.940*L, Arterial Blood Partial Pressure CO2 32.9L, Arterial Blood Partial Pressure O2 155.2H, Arterial Blood HCO3 6.9*L, Arterial Blood Oxygen Saturation 97.7, Arterial Blood Base Excess -24.2*L, Stefano Test Positive 10/08/19 07:20: Arterial Blood pH 6.989*L, Arterial Blood Partial Pressure CO2 42.2, Arterial Blood Partial Pressure O2 124.1H, Arterial Blood HCO3 9.9*L, Arterial Blood Oxygen Saturation 97.3, Arterial Blood Base Excess -20.6*L, Stefano Test Positive Height (Feet): 5 Height (Inches): 7.00 Weight (Pounds): 193 General Appearance: mild distress Cardiovascular: tachycardia Respiratory/Chest: decreased breath sounds Abdomen: distended, other - Situs Extremities: other - 4+ edema Craig Fuentes MD Oct 08, 2019 10:02
--- NOTE | 2019-10-08 12:48 | Hematology/Onc Progress Note ---
Assessment/Plan Assessment/Plan Assessment and Recs # Thrombocytopenia - potential causes multifactorial, evaluate liver and viral etiologies to begin, also could be related to underlying medications patient has received. does have jaundice on exam, concerning for liver disease/does have a hx of cirrhosis, also HIV++ --> Hep panel and HIV ordered --> US abd to evaluate for cirrhosis and hsm ordered --> Peripheral smear ordered to evaluate for blasts /schistocytes --> abx and other meds have been reviewed --> ok for ppx if plt >50k w/ either heparin or lovenox --> Transfuse if Plt < 20k and fever, or if Plt < 10k without fever --> plt 106k->94 # Coagulopathy is also likely related to liver disease, as well as hiv --> trend inr/pt --> vit K as needed prn sq --> given ast/alt may be etoh related # Altered level of consciousness --> rlo infection, cxr does show opacities # Hyponatremia --> per renla # Hypoglycemia -_> d50 prn # Cellulitis of right leg --> abx # Cirrhosis # Encephalopathy acute # Respiratory failure --> on nrm --> family does not want intubation # HIV on testing --> per id care # Dvt ppx scds The timing of this note does not necessarily reflect the time of the patient was seen. Greatly appreciate consultation. Subjective Endocrine: Denies: no symptoms, excessive sweating, flushing, intolerance to cold, intolerance to heat, increased hunger, increased thirst, increased urine, unexplained weight gain, unexplained weight loss, other Allergies: Coded Allergies: No Known Allergies (Unverified , 10/07/19) All Systems: reviewed and negative except above Subjective 10/07 is critically ill in the icu, monse rn, is acidotic, plt lower, family aware of poor prognosis, on nrm Objective Objective Current Medications Medications (Trade) Dose Ordered Sig/Adelita Route PRN Reason Start Time Stop Time Status Last Admin Dose Admin Albumin Human 100 ml @ 100 mls/hr Q8HR IV 10/08/19 14:00 10/10/19 06:59 Ceftriaxone Sodium 1 gm/ Dextrose 55 ml @ 110 mls/hr Q24H IVPB 10/07/19 10:00 10/14/19 09:59 10/08/19 09:20 Chlorhexidine Gluconate (Liliana-Hex 2%) 1 applic DAILY@2000 TOPIC 10/07/19 20:00 01/05/20 19:59 10/07/19 21:06 Dextrose 1,000 ml @ 50 mls/hr Q20H IV 10/08/19 08:00 11/07/19 07:59 10/08/19 08:00 Dextrose (Dextrose 50%) 25 ml Q30M PRN IV Hypoglycemia 10/07/19 09:00 01/05/20 08:59 Dextrose (Dextrose 50%) 50 ml Q30M PRN IV Hypoglycemia 10/07/19 09:00 01/05/20 08:59 10/08/19 06:00 Folic Acid (Folate) 5 mg DAILY NG 10/08/19 09:00 11/07/19 08:59 10/08/19 09:00 Lactulose (Cephulac) 30 gm FOUR TIMES A DAY ORAL 10/07/19 13:00 11/06/19 08:59 10/08/19 09:00 Norepinephrine Bitartrate 8 mg/ Dextrose 558 ml @ 0 mls/hr Q24H IV 10/08/19 08:15 01/06/20 08:14 10/08/19 08:15 Pantoprazole (Protonix) 40 mg Q12HR IVP 10/08/19 09:00 11/06/19 20:59 10/08/19 09:00 Phenylephrine HCl 100 mg/Sodium Chloride 250 ml @ 0 mls/hr Q24H IV 10/08/19 10:00 11/07/19 09:59 10/08/19 09:25 Sodium Chloride 500 ml @ 30 mls/hr ONCE ONCE IV 10/08/19 08:00 10/09/19 00:39 10/08/19 08:00 Thiamine HCl 100 mg/Dextrose 56 ml @ 112 mls/hr Q24H IVPB 10/07/19 10:00 11/06/19 09:59 10/08/19 09:20 Vancomycin HCl ([facility] pharmacy to dose) 1 ea DAILY PRN MISC Per rx protocol 10/07/19 10:00 11/06/19 09:59 Last 24 Hour Vital Signs Date Time Temp Pulse Resp B/P (MAP) Pulse Ox O2 Delivery O2 Flow Rate FiO2 10/08/19 11:15 100 Nasal Cannula 2.0 28 7/20/20 09:25 50 65/40 7/20/20 08:15 68/23 7/20/20 06:16 85/30 7/20/20 05:45 41 15 55/21 (32) 79 7/20/20 05:43 60 21 57/27 (37) 86 7/20/20 05:39 77 27 56/21 (33) 91 7/20/20 05:33 82 27 62/21 (35) 91 7/20/20 05:30 88 27 61/26 (38) 93 7/20/20 05:28 86 27 69/25 (40) 93 7/20/20 05:15 93 26 72/30 (44) 93 7/20/20 05:00 91 27 80/30 (47) 92 7/20/20 04:45 87 27 84/22 (42) 92 7/20/20 04:31 95 28 86/38 (54) 92 7/20/20 04:30 95 28 73/22 (39) 93 7/20/20 04:27 97 27 75/42 (53) 93 7/20/20 04:26 96 28 76/37 (50) 93 7/20/20 04:25 97 28 82/35 (51) 93 7/20/20 04:21 96 44 81/38 (52) 92 7/20/20 04:15 99.3 98 48 80/31 (47) 93 7/20/20 04:00 Room Air 7/20/20 04:00 98 44 83/29 (47) 92 7/20/20 04:00 50 7/20/20 03:45 96 46 79/41 (54) 93 7/20/20 03:30 96 50 89/31 (50) 93 7/20/20 03:16 97 51 94/48 (63) 93 7/20/20 03:15 85/30 7/20/20 03:00 104 34 92/23 (46) 94 7/20/20 02:30 104 34 92/23 (46) 94 7/20/20 02:00 102 28 87/23 (44) 94 7/20/20 01:30 97.8 100 27 87/51 (63) 94 7/20/20 01:00 102 26 85/22 (43) 94 7/20/20 00:30 102 26 82/22 (42) 94 7/20/20 00:00 Room Air 7/20/20 00:00 102 26 82/22 (42) 94 7/19/20 23:30 101 26 90/42 (58) 95 7/19/20 23:00 103 26 91/42 (58) 95 7/19/20 22:30 104 26 90/47 (61) 95 7/19/20 22:00 103 26 92/52 (65) 95 7/19/20 21:53 98/56 7/19/20 21:30 103 27 100/60 (73) 95 7/19/20 21:00 102 27 100/52 (68) 96 7/19/20 20:30 102 27 97/58 (71) 96 7/19/20 20:00 90 7/19/20 20:00 98.6 101 25 110/36 (60) 96 7/19/20 20:00 Room Air 7/19/20 19:30 100 24 105/42 (63) 97 7/19/20 19:00 99 23 92/42 (59) 97 7/19/20 18:30 98 22 102/54 (70) 97 7/19/20 18:00 97 21 108/69 (82) 97 7/19/20 17:30 97 22 95/41 (59) 97 7/19/20 17:00 97.0 91 21 97/50 (66) 97 7/19/20 16:30 92 19 96/49 (65) 97 7/19/20 16:00 Room Air 7/19/20 16:00 90 7/19/20 16:00 95.0 91 18 101/52 (68) 98 7/19/20 15:30 92 18 99/59 (72) 98 7/19/20 15:00 91 18 105/64 (78) 97 7/19/20 14:45 91 17 101/67 (78) 98 7/19/20 14:30 90 16 102/58 (73) 98 7/19/20 14:00 91 16 96/53 (67) 97 7/19/20 13:45 90 20 107/55 (72) 98 7/19/20 13:30 89 17 100/66 (77) 98 7/19/20 13:15 90 18 101/52 (68) 98 7/19/20 13:00 91 17 97/55 (69) 98 7/20 12:47 90 17 98/57 (71) 98 7/20 12:45 91 17 94/52 (66) 99 7/19/20 12:30 92 16 87/46 (60) 98 720 12:15 94 17 95/59 (71) 99 720 12:00 94 720 12:00 97.1 94 16 104/45 (64) 98 719/20 12:00 Room Air 10/07/19 11:45 93 15 96/52 (67) 99 20 11:30 92 18 101/59 (73) 98 720 11:15 89 15 95/54 (68) 99 720 11:00 88 15 102/59 (73) 99 7/20 10:58 87/48 720 10:45 87 19 83/30 (47) 98 720 10:30 87 19 88/52 (64) 99 720 10:30 88 19 88/41 (57) 98 7/20 10:15 89 18 98 7/20 10:00 91 18 95/37 (56) 98 7/20 10:00 91 18 95/37 (56) 98 719/20 09:45 92 15 7/20 09:32 92 18 100/85 (90) 20 09:30 92 18 100/85 (90) 20 09:30 91 17 89/69 (76) 720 09:15 92 17 97 719/20 09:15 100/85 7/20 09:02 94 17 96/68 (77) 97 7/20 09:00 94 15 97 719/20 09:00 94 17 96/68 (77) 97 7/20 08:45 93 16 97 719/20 08:30 92 18 92/46 (61) 98 719/20 08:30 92 18 92/46 (61) 98 720 08:15 95 16 86 720 08:00 96 15 89/66 (74) 98 10/07/19 08:00 96 15 89/66 (74) 98 10/07/19 07:39 95 10/07/19 07:30 94 17 90/43 (59) 99 10/07/19 07:30 94 17 90/43 (59) 99 10/07/19 07:15 92 14 100/53 (69) 100 10/07/19 07:10 91 17 91/52 (65) 100 10/07/19 07:08 91 18 84/40 (55) 99 10/07/19 07:00 91 20 67/44 (52) 99 10/07/19 07:00 97.4 92 14 100/53 (69) 100 10/07/19 07:00 Room Air 10/07/19 06:30 97.4 100 22 111/80 100 Room Air 10/07/19 06:00 97.3 104 18 99/80 100 Room Air 10/07/19 05:05 97.3 99 15 100/78 99 Room Air 10/07/19 04:25 97.3 99 17 111/81 100 Room Air 10/07/19 03:30 98.0 101 15 127/90 100 Room Air 10/07/19 03:00 98.0 102 19 101/77 98 Room Air 10/07/19 02:35 98.0 99 15 105/56 99 Room Air 10/07/19 01:30 100 19 Room Air 10/07/19 01:30 97.3 100 19 145/127 100 Room Air 10/07/19 01:25 98.4 88 19 99/56 (70) 97 Room Air Intake and Output 10/07/19 10/08/19 19:00 07:00 Intake Total 1978.50 ml 1325.0 ml Output Total 25 ml 60 ml Balance 1953.50 ml 1265.0 ml Intake IV Total 1978.50 ml 1325.0 ml Output Urine Total 25 ml 60 ml Labs Test 10/07/19 00:00 10/07/19 01:43 10/07/19 01:50 10/07/19 04:17 White Blood Count 10.6 K/UL (4.8-10.8) Red Blood Count 3.02 M/UL (4.70-6.10) Hemoglobin 10.4 G/DL (14.2-18.0) Hematocrit 29.9 % (42.0-52.0) Mean Corpuscular Volume 99 FL (80-99) Mean Corpuscular Hemoglobin 34.6 PG (27.0-31.0) Mean Corpuscular Hemoglobin Concent 34.9 G/DL (32.0-36.0) Red Cell Distribution Width 14.5 % (11.6-14.8) Platelet Count 116 K/UL (150-450) Mean Platelet Volume 6.7 FL (6.5-10.1) Neutrophils (%) (Auto) 75.7 % (45.0-75.0) Lymphocytes (%) (Auto) 8.8 % (20.0-45.0) Monocytes (%) (Auto) 9.7 % (1.0-10.0) Eosinophils (%) (Auto) 3.4 % (0.0-3.0) Basophils (%) (Auto) 2.4 % (0.0-2.0) Prothrombin Time 21.8 SEC (9.30-11.50) Prothromb Time International Ratio 2.1 (0.9-1.1) Activated Partial Thromboplast Time 50 SEC (23-33) Sodium Level 116 MMOL/L (136-145) 117 MMOL/L (136-145) Potassium Level 5.3 MMOL/L (3.5-5.1) 5.4 MMOL/L (3.5-5.1) Chloride Level 87 MMOL/L (98-107) 89 MMOL/L (98-107) Carbon Dioxide Level 15 MMOL/L (21-32) 15 MMOL/L (21-32) Anion Gap 13 mmol/L (5-15) 12 mmol/L (5-15) Blood Urea Nitrogen 48 mg/dL (7-18) 51 mg/dL (7-18) Creatinine 2.4 MG/DL (0.55-1.30) 2.5 MG/DL (0.55-1.30) Estimat Glomerular Filtration Rate 28.1 mL/min (>60) 26.8 mL/min (>60) Glucose Level 68 MG/DL (74-106) 97 MG/DL (74-106) Calcium Level 7.5 MG/DL (8.5-10.1) 7.4 MG/DL (8.5-10.1) Total Bilirubin 5.2 MG/DL (0.2-1.0) 5.2 MG/DL (0.2-1.0) Direct Bilirubin 4.2 MG/DL (0.0-0.3) 4.3 MG/DL (0.0-0.3) Aspartate Amino Transf (AST/SGOT) 89 U/L (15-37) 80 U/L (15-37) Alanine Aminotransferase (ALT/SGPT) 8 U/L (12-78) 20 U/L (12-78) Alkaline Phosphatase 149 U/L (46-116) 142 U/L (46-116) Ammonia 82 umol/L (11-32) Troponin I 0.005 ng/mL (0.000-0.056) Pro-B-Type Natriuretic Peptide 4363 pg/mL (0-125) Total Protein 6.5 G/DL (6.4-8.2) 6.2 G/DL (6.4-8.2) Albumin 1.6 G/DL (3.4-5.0) 1.5 G/DL (3.4-5.0) Globulin 4.9 g/dL 4.7 g/dL Albumin/Globulin Ratio 0.3 (1.0-2.7) 0.3 (1.0-2.7) Thyroid Stimulating Hormone (TSH) 2.515 uiU/mL (0.358-3.740) Arterial Blood pH 7.336 (7.350-7.450) Arterial Blood Partial Pressure CO2 25.2 mmHg (35.0-45.0) Arterial Blood Partial Pressure O2 75.7 mmHg (75.0-100.0) Arterial Blood HCO3 13.2 mmol/L (22.0-26.0) Arterial Blood Oxygen Saturation 93.8 % (95-100) Arterial Blood Base Excess -11.2 (-2-2) Stefano Test Positive Urine Color Brown Urine Appearance Clear Urine pH 5 (4.5-8.0) Urine Specific Adams 1.015 (1.005-1.035) Urine Protein 1+ (NEGATIVE) Urine Glucose (UA) Negative (NEGATIVE) Urine Ketones 2+ (NEGATIVE) Urine Blood 2+ (NEGATIVE) Urine Nitrite Negative (NEGATIVE) Urine Bilirubin 2+ (NEGATIVE) Urine Ictotest Positive (NEGATIVE) Urine Urobilinogen 1 MG/DL (0.0-1.0) Urine Leukocyte Esterase 1+ (NEGATIVE) Urine RBC 2-4 /HPF (0 - 0) Urine WBC 2-4 /HPF (0 - 0) Urine Squamous Epithelial Cells Occasional /LPF Urine Bacteria Occasional /HPF (NONE) Urine Hyaline Casts 10-15 /LPF (NONE) Urine Mucus Few /LPF (NONE/OCC) Test 10/07/19 09:30 10/07/19 11:00 10/07/19 18:15 10/08/19 03:37 Fibrinogen 246 mg/dL (200-400) Urine Osmolality 276 mOsm/kg (429-449) Urine Random Sodium < 20 mmol/L (20-110) Hemoglobin A1c 5.3 % (4.3-6.0) Osmolality 269 mOsm/kg (297-317) Uric Acid 7.3 MG/DL (2.6-7.2) 8.1 MG/DL (2.6-7.2) Phosphorus Level 5.1 MG/DL (2.5-4.9) 7.2 MG/DL (2.5-4.9) Magnesium Level 1.8 MG/DL (1.8-2.4) 2.0 MG/DL (1.8-2.4) Ferritin 607 NG/ML (8-388) Gamma Glutamyl Transpeptidase 98 U/L (5-85) Triglycerides Level 85 MG/DL (30-150) Cholesterol Level 59 MG/DL (< 200) LDL Cholesterol 29 mg/dL (<100) HDL Cholesterol 8 MG/DL (40-60) Cholesterol/HDL Ratio 7.4 (3.3-4.4) Vitamin B12 Level > 2000 PG/ML (193-986) Folate 4.3 NG/ML (8.6-58.9) HIV (1&2) Antibody Rapid Preliminary positive Serum Alcohol < 3 mg/dL White Blood Count 36.9 K/UL (4.8-10.8) Red Blood Count 3.14 M/UL (4.70-6.10) Hemoglobin 10.8 G/DL (14.2-18.0) Hematocrit 32.8 % (42.0-52.0) Mean Corpuscular Volume 105 FL (80-99) Mean Corpuscular Hemoglobin 34.2 PG (27.0-31.0) Mean Corpuscular Hemoglobin Concent 32.7 G/DL (32.0-36.0) Red Cell Distribution Width 15.5 % (11.6-14.8) Platelet Count 94 K/UL (150-450) Mean Platelet Volume 6.6 FL (6.5-10.1) Neutrophils (%) (Auto) % (45.0-75.0) Lymphocytes (%) (Auto) % (20.0-45.0) Monocytes (%) (Auto) % (1.0-10.0) Eosinophils (%) (Auto) % (0.0-3.0) Basophils (%) (Auto) % (0.0-2.0) Differential Total Cells Counted 100 Neutrophils % (Manual) 56 % (45-75) Lymphocytes % (Manual) 8 % (20-45) Monocytes % (Manual) 10 % (1-10) Eosinophils % (Manual) 0 % (0-3) Basophils % (Manual) 0 % (0-2) Metamyelocytes % 1 % (0-0) Myelocytes % 1 % (0-0) Band Neutrophils 24 % (0-8) Platelet Estimate Decreased Platelet Morphology Normal Polychromasia 1+ Anisocytosis 1+ Macrocytosis 1+ Sodium Level 119 MMOL/L (136-145) Potassium Level 6.7 MMOL/L (3.5-5.1) Chloride Level 90 MMOL/L (98-107) Carbon Dioxide Level 12 MMOL/L (21-32) Anion Gap 17 mmol/L (5-15) Blood Urea Nitrogen 57 mg/dL (7-18) Creatinine 3.3 MG/DL (0.55-1.30) Estimat Glomerular Filtration Rate 19.5 mL/min (>60) Glucose Level 69 MG/DL (74-106) Calcium Level 8.0 MG/DL (8.5-10.1) Total Bilirubin 6.7 MG/DL (0.2-1.0) Direct Bilirubin 5.4 MG/DL (0.0-0.3) Aspartate Amino Transf (AST/SGOT) 821 U/L (15-37) Alanine Aminotransferase (ALT/SGPT) 85 U/L (12-78) Alkaline Phosphatase 228 U/L (46-116) Ammonia 101 umol/L (11-32) Troponin I 0.000 ng/mL (0.000-0.056) C-Reactive Protein, Quantitative 17.1 mg/dL (0.00-0.90) Pro-B-Type Natriuretic Peptide 83532 pg/mL (0-125) Total Protein 6.6 G/DL (6.4-8.2) Albumin 1.6 G/DL (3.4-5.0) Globulin 5.0 g/dL Albumin/Globulin Ratio 0.3 (1.0-2.7) Thyroid Stimulating Hormone (TSH) 1.521 uiU/mL (0.358-3.740) Free Thyroxine 0.72 NG/DL (0.76-1.46) Random Vancomycin Level 16.9 ug/mL Test 10/08/19 06:14 10/08/19 07:20 Arterial Blood pH 6.940 (7.350-7.450) 6.989 (7.350-7.450) Arterial Blood Partial Pressure CO2 32.9 mmHg (35.0-45.0) 42.2 mmHg (35.0-45.0) Arterial Blood Partial Pressure O2 155.2 mmHg (75.0-100.0) 124.1 mmHg (75.0-100.0) Arterial Blood HCO3 6.9 mmol/L (22.0-26.0) 9.9 mmol/L (22.0-26.0) Arterial Blood Oxygen Saturation 97.7 % (95-100) 97.3 % (95-100) Arterial Blood Base Excess -24.2 (-2-2) -20.6 (-2-2) Stefano Test Positive Positive Height (Feet): 5 Height (Inches): 7.00 Weight (Pounds): 193 Objective General obese, Chronically Ill Head: atraumatic Eyes: bilateral eye other - hippus Neck: full range of motion++jaundice Respiratory: chest non-tender, lungs clear, normal breath sounds Cardiovascular: regular rate, rhythm, edema - 4+ Gastrointestinal: normal inspection, soft Musculoskeletal: normal inspection Neurologic: alert, motor strength/tone normal, 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
--- NOTE | 2019-10-08 14:40 | Surgery Progress Note ---
Surgery Progress Note Subjective Additional Comments Acute worsening. Hepatic decompensation. Severe leukocytosis. Hemoglobin noted white count noted LFT significantly elevated Objective Last 24 Hour Vital Signs Date Time Temp Pulse Resp B/P (MAP) Pulse Ox O2 Delivery O2 Flow Rate FiO2 10/08/19 11:15 100 Nasal Cannula 2.0 28 10/08/19 10:00 0 0 40 10/08/19 09:50 0 0 173/13 (66) 32 10/08/19 09:45 0 0 108/13 (44) 38 10/08/19 09:30 49 22 59/25 (36) 10/08/19 09:25 50 65/40 10/08/19 09:15 56 20 71/24 (40) 69 10/08/19 09:00 60 24 58/13 (28) 97 10/08/19 09:00 58/13 10/08/19 08:45 64 24 69/18 (35) 97 10/08/19 08:15 76 25 51/25 (34) 100 10/08/19 08:15 68/23 10/08/19 08:00 75 10/08/19 08:00 100.0 80 26 55/31 (39) 100 10/08/19 08:00 Room Air 10/08/19 07:45 82 26 62/25 (37) 100 10/08/19 07:30 86 26 71/19 (36) 100 10/08/19 07:15 84 26 73/27 (42) 100 10/08/19 07:00 95 26 60/47 (51) 100 10/08/19 06:16 85/30 10/08/19 05:45 41 15 55/21 (32) 79 10/08/19 05:43 60 21 57/27 (37) 86 10/08/19 05:39 77 27 56/21 (33) 91 10/08/19 05:33 82 27 62/21 (35) 91 10/08/19 05:30 88 27 61/26 (38) 93 10/08/19 05:28 86 27 69/25 (40) 93 10/08/19 05:15 93 26 72/30 (44) 93 10/08/19 05:00 91 27 80/30 (47) 92 10/08/19 04:45 87 27 84/22 (42) 92 7/20/20 04:31 95 28 86/38 (54) 92 7/20/20 04:30 95 28 73/22 (39) 93 7/20/20 04:27 97 27 75/42 (53) 93 7/20/20 04:26 96 28 76/37 (50) 93 7/20/20 04:25 97 28 82/35 (51) 93 7/20/20 04:21 96 44 81/38 (52) 92 7/20/20 04:15 99.3 98 48 80/31 (47) 93 7/20/20 04:00 Room Air 720/20 04:00 98 44 83/29 (47) 92 7/20/20 04:00 50 7/20/20 03:45 96 46 79/41 (54) 93 7/20/20 03:30 96 50 89/31 (50) 93 7/20/20 03:16 97 51 94/48 (63) 93 7/20/20 03:15 85/30 7/20/20 03:00 104 34 92/23 (46) 94 7/20/20 02:30 104 34 92/23 (46) 94 7/20/20 02:00 102 28 87/23 (44) 94 7/20/20 01:30 97.8 100 27 87/51 (63) 94 7/20/20 01:00 102 26 85/22 (43) 94 7/20/20 00:30 102 26 82/22 (42) 94 7/20/20 00:00 Room Air 7/20/20 00:00 102 26 82/22 (42) 94 7/19/20 23:30 101 26 90/42 (58) 95 7/19/20 23:00 103 26 91/42 (58) 95 7/19/20 22:30 104 26 90/47 (61) 95 7/19/20 22:00 103 26 92/52 (65) 95 7/19/20 21:53 98/56 7/19/20 21:30 103 27 100/60 (73) 95 7/19/20 21:00 102 27 100/52 (68) 96 7/19/20 20:30 102 27 97/58 (71) 96 7/19/20 20:00 90 7/19/20 20:00 98.6 101 25 110/36 (60) 96 10/07/19 20:00 Room Air 10/07/19 19:30 100 24 105/42 (63) 97 10/07/19 19:00 99 23 92/42 (59) 97 10/07/19 18:30 98 22 102/54 (70) 97 10/07/19 18:00 97 21 108/69 (82) 97 10/07/19 17:30 97 22 95/41 (59) 97 10/07/19 17:00 97.0 91 21 97/50 (66) 97 10/07/19 16:30 92 19 96/49 (65) 97 10/07/19 16:00 Room Air 10/07/19 16:00 90 10/07/19 16:00 95.0 91 18 101/52 (68) 98 10/07/19 15:30 92 18 99/59 (72) 98 10/07/19 15:00 91 18 105/64 (78) 97 10/07/19 14:45 91 17 101/67 (78) 98 I&O Intake and Output 10/07/19 10/08/19 19:00 07:00 Intake Total 1978.50 ml 1335.0 ml Output Total 25 ml 60 ml Balance 1953.50 ml 1275.0 ml Intake IV Total 1978.50 ml 1325.0 ml Other 10 ml Output Urine Total 25 ml 60 ml Dressing: saturated Cardiovascular: other Respiratory: decreased breath sounds, other Abdomen: soft, non-tender, present bowel sounds Extremities: edema, tenderness, other Laboratory Tests Test 10/07/19 18:15 10/08/19 03:37 10/08/19 06:14 10/08/19 07:20 Serum Alcohol < 3 mg/dL White Blood Count 36.9 K/UL (4.8-10.8) #*H Red Blood Count 3.14 M/UL (4.70-6.10) L Hemoglobin 10.8 G/DL (14.2-18.0) L Hematocrit 32.8 % (42.0-52.0) L Mean Corpuscular Volume 105 FL (80-99) H Mean Corpuscular Hemoglobin 34.2 PG (27.0-31.0) H Mean Corpuscular Hemoglobin Concent 32.7 G/DL (32.0-36.0) Red Cell Distribution Width 15.5 % (11.6-14.8) H Platelet Count 94 K/UL (150-450) L Mean Platelet Volume 6.6 FL (6.5-10.1) Neutrophils (%) (Auto) % (45.0-75.0) Lymphocytes (%) (Auto) % (20.0-45.0) Monocytes (%) (Auto) % (1.0-10.0) Eosinophils (%) (Auto) % (0.0-3.0) Basophils (%) (Auto) % (0.0-2.0) Differential Total Cells Counted 100 Neutrophils % (Manual) 56 % (45-75) Lymphocytes % (Manual) 8 % (20-45) L Monocytes % (Manual) 10 % (1-10) Eosinophils % (Manual) 0 % (0-3) Basophils % (Manual) 0 % (0-2) Metamyelocytes % 1 % (0-0) H Myelocytes % 1 % (0-0) H Band Neutrophils 24 % (0-8) H Platelet Estimate Decreased L Platelet Morphology Normal Polychromasia 1+ Anisocytosis 1+ Macrocytosis 1+ Sodium Level 119 MMOL/L (136-145) *L Potassium Level 6.7 MMOL/L (3.5-5.1) *H Chloride Level 90 MMOL/L (98-107) L Carbon Dioxide Level 12 MMOL/L (21-32) L Anion Gap 17 mmol/L (5-15) H Blood Urea Nitrogen 57 mg/dL (7-18) H Creatinine 3.3 MG/DL (0.55-1.30) H Estimat Glomerular Filtration Rate 19.5 mL/min (>60) Glucose Level 69 MG/DL (74-106) L Uric Acid 8.1 MG/DL (2.6-7.2) H Calcium Level 8.0 MG/DL (8.5-10.1) L Phosphorus Level 7.2 MG/DL (2.5-4.9) H Magnesium Level 2.0 MG/DL (1.8-2.4) Total Bilirubin 6.7 MG/DL (0.2-1.0) H Direct Bilirubin 5.4 MG/DL (0.0-0.3) H Aspartate Amino Transf (AST/SGOT) 821 U/L (15-37) H Alanine Aminotransferase (ALT/SGPT) 85 U/L (12-78) H Alkaline Phosphatase 228 U/L (46-116) H Ammonia 101 umol/L (11-32) H Troponin I 0.000 ng/mL (0.000-0.056) C-Reactive Protein, Quantitative 17.1 mg/dL (0.00-0.90) H Pro-B-Type Natriuretic Peptide 13197 pg/mL (0-125) H Total Protein 6.6 G/DL (6.4-8.2) Albumin 1.6 G/DL (3.4-5.0) L Globulin 5.0 g/dL Albumin/Globulin Ratio 0.3 (1.0-2.7) L Thyroid Stimulating Hormone (TSH) 1.521 uiU/mL (0.358-3.740) Free Thyroxine 0.72 NG/DL (0.76-1.46) L Random Vancomycin Level 16.9 ug/mL Arterial Blood pH 6.940 (7.350-7.450) 6.989 (7.350-7.450) Arterial Blood Partial Pressure CO2 32.9 mmHg (35.0-45.0) L 42.2 mmHg (35.0-45.0) Arterial Blood Partial Pressure O2 155.2 mmHg (75.0-100.0) H 124.1 mmHg (75.0-100.0) H Arterial Blood HCO3 6.9 mmol/L (22.0-26.0) *L 9.9 mmol/L (22.0-26.0) *L Arterial Blood Oxygen Saturation 97.7 % (95-100) 97.3 % (95-100) Arterial Blood Base Excess -24.2 (-2-2) *L -20.6 (-2-2) *L Stefano Test Positive Positive Plan Problems: (1) Cirrhosis (2) Hypoglycemia (3) Hyponatremia (4) Altered level of consciousness (5) Cellulitis of right leg Assessment & Plan: 54-year-old male intensive care unit noted to have significant cellulitis of the right lower extremity. Bilateral lower extremity identified likely secondary to his cirrhosis hypoalbuminemia and overall medical condition potential CHF. His cellulitis of the right lower extremity with blistering and superficial skin breakdown identified. No abscess identified. Compartments are soft. Is tender but expected given examination. Pulses are palpable. No acute surgical invention at this time. Local wound dressings. Keep lower extremity elevated with pillows above the level of the heart. Will monitor closely for further breakdown worsening cellulitis or abscess formation. Antibiotics as per infectious disease. Thank you for let me participate in patient's care Severe hepatic decompensation Acute worsening leukocytosis Prognosis guarded Critically ill No acute surgical invention planned at this time (6) Encephalopathy acute Ozzy Christensen Oct 08, 2019 14:40
--- NOTE | 2019-10-08 16:43 | Emergency Room Report ---
Physical Exam Vital Signs Date Time Temp Pulse Resp B/P (MAP) Pulse Ox O2 Delivery O2 Flow Rate FiO2 10/07/19 01:25 98.4 88 19 99/56 (70) 97 Room Air 10/08/19 11:15 2.0 28 Sp02 EP Interpretation: reviewed, abnormal General Appearance: severe distress, lethargic, obese Eyes: bilateral eye abnormal EOM, bilateral eye abnormal pupil Respiratory: respiratory distress, crackles Cardiovascular #1: other - asystole Gastrointestinal: distended, hepatomegaly Neurologic: other Medical Decision Making Diagnostic Impression: Primary Impression: Altered level of consciousness Additional Impressions: Encephalopathy acute Cirrhosis Hypoglycemia Hyponatremia Cellulitis of right leg Hyperkalemia Asystole Septic shock Metabolic acidosis Cirrhosis of liver Alcoholic liver disease ER Course LATE ENTRY I was consulted by WARP TESTER for intubation as patient has been decompensating and they have been unable to reach the primary admitting team. I went immediately to bedside when called at approximately 0930AM. On my way, a CODE BLUE was called overhead. Patient was found GCS 3 with no spontaneous respirations, pupils fixed and dilated, in soiled diaper. CPR was in progress by ICU RNs and RT was bag ventilating patient. ACLS was performed. Calcium, magnesium, bicarb given for hyperkalemia. Please see RN code sheet for list of meds given and time. Patient was intubated via video laryngoscopy by myself using bougie. Grade IV view, difficult airway. First pass success Unfortunately, patient after several rounds of ACLS. Time of was 10:02AM. Admitting team notified by WARP TESTER. CRITICAL CARE STATEMENT Organ systems at risk include: cardiac / circulatory / neuro / renal / hepatic Critical care performed for 35 minutes. Time is exclusive of separately billable procedures. Time includes: direct patient care, continuous monitoring and multiple patient reassessment, coordination of patient care, review of patient's medical records , medical consultation, family consultation regarding treatment decisions and documentation of patient care. PROCEDURE NOTE Cardiopulmonary Resuscitation by me: See code documentation for specific details. ACLS and BLS were performed with high quality chest compressions and minimal interruptions. Any reversible causes were assessed and treated. PROCEDURE NOTE Endotracheal Intubation by me: Pre assessment performed. See preceding note for details. Pre-oxygenation performed with 100% oxygen RSI: Performed w/o complication or hypoxic events. Medications as ordered. Emergency Endotracheal Intubation: Consent unable to be obtained due to emergent nature of procedure and airway assessment this patient was prepared for endotracheal intubation with preoxygenation and airway positioning. The patient underwent rapid sequence induction and endotracheal intubation utilizing direct visualization laryngoscopy. The endotracheal tube was placed between the vocal cords and placement was confirmed with fogging of the tube, end title CO2, and equal bilateral chest rise as well as absence of borborygmi over the epigastrium. There were no complications. Blade: MAC VL ET Tube: 7.5 cm Depth: 24 cm at the lip Complications: No hypoxic events or bradycardia Intubation confirmed by colorimetric CO2, equal breath sounds, quiet over the stomach. Intubated with full C spine precautions, with the assistance of molding machine tender. Last Vital Signs Date Time Temp Pulse Resp B/P (MAP) Pulse Ox O2 Delivery O2 Flow Rate FiO2 10/08/19 11:15 100 Nasal Cannula 2.0 28 10/08/19 10:00 0 0 10/08/19 09:50 173/13 (66) 10/08/19 08:00 100.0 Disposition: Condition: Referrals: Yan Chamorro M.D. (PCP) Giselle Bullock D.O. Oct 08, 2019 16:43
--- NOTE | 2019-10-08 17:00 | History and Physical Report ---
DATE OF ADMISSION: 10/07/2019 HISTORY OF PRESENT ILLNESS: The patient is admitted to our intensive care unit with altered mental status and hepatic encephalopathy. The patient is lethargic, altered. The patient also is being admitted for severe hyponatremia, hypoglycemia, cirrhosis, elevated ammonia, hepatic encephalopathy. Hypertonic saline was started. The patient also has elevated bilirubin, elevated LFT and INR, coagulopathy and ammonia, and acute renal failure. The patient most likely might be developing hepatorenal and also has cellulitis of the lower extremities, admitted to the intensive care unit. I cannot really get any history from the patient. He is very confused and lethargic. The patient is also hypotensive. PAST MEDICAL HISTORY: Alcoholic cirrhosis, GERD. PAST SURGICAL HISTORY: No known surgeries. ALLERGIES: No known allergies. MEDICATIONS: Cannot tell me the name of the medications. FAMILY HISTORY: Noncontributory. REVIEW OF SYSTEMS: Unable to obtain, lethargic. PHYSICAL EXAMINATION: VITAL SIGNS: Temperature is not recorded, pulse is 88, blood pressure is 62/21. HEENT: Pupils are sluggish, but reactive. CHEST: Clear to auscultation. CARDIOVASCULAR: Regular rate and rhythm. No murmurs or extra sounds. GASTROINTESTINAL: Distended. Positive bowel sounds. EXTREMITIES: He does have edema in the lower extremity and has erythema in the lower extremities compatible with cellulitis. Unable to get history, the patient is lethargic. LABORATORY DATA: WBC of 10.6, hemoglobin of 10.4, platelets of 116. Sodium 119, potassium 6.7, chloride 90, BUN of 57, creatinine of 3.3, glucose of 69. AST of 821, ALT of 85. Ammonia 101. ASSESSMENT AND PLAN: respiratory failure, acidotic, hepatic encephalopathy due to alcohol, developing hepatorenal syndrome, hypoglycemia cellulitis of the lower extremity. I have consulted Dr. Hoyos, Dr. Nicho Pink, Dr. Kobe Alvarado, Dr. Jasvir Shore, Dr. Fuentes, Dr. Newby, and Dr. Soria to help with this very complex and very ill and critically ill patient. We will monitor the patient very closely. He is currently in guarded condition. Fish Fairchild M.D. DR: JORGE JOB#: [id number] CC:
--- NOTE | 2019-10-08 21:15 | Consultation ---
DATE OF CONSULTATION: 10/07/2019 ENDOCRINOLOGY CONSULTATION CONSULTING PHYSICIAN: Nicola Soria MD. REFERRING PHYSICIAN: Fish Fairchild MD. REASON FOR CONSULTATION: Hypoglycemia. HISTORY OF PRESENT ILLNESS: The patient is a 54-year-old male with history of cirrhosis, who resides in a convalescent home, was brought because of the altered mental status. The patient was found to be hyponatremic and hypoglycemic and agitated. History is mostly obtained from the review of the chart and medical record and is quite limited. PAST MEDICAL HISTORY: Cirrhosis. PAST SURGICAL HISTORY: Unknown. REVIEW OF SYSTEMS: Unable to obtain. COVID History, negative tested at [facility]. FAMILY HISTORY: Unknown. SOCIAL HISTORY: Unknown. LABORATORY VALUES: Include sodium 116, potassium 5.3, chloride 87, bicarb 15, anion gap of 13, BUN 48, creatinine 2.4, glucose of 60, calcium 7.5. , and ammonia level was 82. Troponin is 0.005. Urine with 2+ of ketones, 2+ of blood. INR is 2.1. CBC shows WBC of 7, hemoglobin of 10, hematocrit 29, and platelets of 116,000. PHYSICAL EXAMINATION: GENERAL: The patient is awake, alert, agitated. VITAL SIGNS: Temperature 97.4, pulse 100, respiratory rate 22, blood pressure 111/80. The patient is saturating 100% on room air. NECK: No JVD. HEART: Tachy. LUNGS: Clear. ABDOMEN: Positive bowel sounds. EXTREMITIES: Positive for edema. DIAGNOSES: 1. Encephalopathy, toxic metabolic, most likely due to hepatic origin. 2. Hyponatremia. 3. Hypoglycemia. 4. Cellulitis. 5. Cirrhosis. DISCUSSION: Patient presented with hyponatremia, hypoglycemia therefore adrenal insufficiency should be ruled out. I will order a Cortrosyn stimulation test I went over the instruction of the testing with RN caring for the patient and baseline serum cortisol will be drawn and then Cortrosyn 250 mcg IV push will be administered and 30 minutes after the injection and we will draw the blood for second cortisol value and will looking for a target level of > 18 on the second cortisol sample. For the time being, we will treat hypoglycemia with dextrose. Blood glucose will be monitored closely without any insulin coverage. I will follow the patient during the stay. Thank you, Dr. Fairchild, for the courtesy of the consultation. Nicola Soria M.D. DR: ALEXUS JOB#: [id number] CC: CLARENCE
--- NOTE | 2019-10-09 09:06 | Discharge Summary ---
Discharge Summary Discharge Summary _ SUMMARY DATE OF ADMISSION: 10/07/2019 DATE OF DISCHARGE: 10/08/2019 REASON FOR ADMISSION: 54 years old male with past medical history of alcoholic liver cirrhosis, diabetes mellitus type 2, hypertension, presented to emergency department from the senior living facility due to altered mental status. Blood sugar was in the 90s. Patient was receiving antibiotics for right lower extremity cellulitis . Patient was on lactulose prior . Upon evaluation blood pressure was on the low side 99/56, no fevers. Laboratory work-up revealed no leukocytosis ,hemoglobin 10.4 ,hematocrit 29.9 , platelet count 116. Sodium 116, potassium 5.3 ,chloride 87 ,anion gap 13. BUN 48, creatinine 2.4. Glucose 68. Total bilirubin 5.2 , direct bilirubin 4.2 AST 89, ALT 8. Ammonia 82. Troponin 0.005, pro BNP 4363. Albumin 1.6. EKG revealed sinus rhythm, no acute ischemic changes. CT of the head demonstrated no acute intracranial pathology. Chest x-ray revealed low lung volumes with bronchovascular crowding. Patchy left lower lung opacity , possibly representing airspace infectious or inflammatory opacity. In emergency room patient received dextrose D10 for hypoglycemia, started on hypertonic saline solution. Patient also received Lasix . Patient subsequently admitted for further management. CONSULTANTS: roll tester Dr. Hernandez pulmonary Dr. Alvarado ID specialist Dr. Nicho Pink GI specialist Dr. Bullard floral clerk Dr. Fuentes Power Distributor Dr. Soria surgery Dr. Christensen hematology [facility] COURSE: Patient admitted to monitored floor . Patient was on hypertonic saline solution . Patient started on empiric antibiotics. Hemodynamic status was closely monitored . Patient required start of pressors, which titrated to keep mean arterial blood pressure above 65. Blood sugar was closely monitored. Hypoglycemia protocol was in order. Renal parameters and electrolytes were closely monitored. Electrolytes corrected as needed . Potassium roni to 6.7 , creatinine trended up to to 3.3. Patient was in ICU : acidotic, hypotensive, on 2 different pressors. Patient received IV fluids and 3% saline in addition to albumin and sodium bicarb . Patient also received Kayexalate. LFT worsened: AST from 89 up to 821 and ALT from 8 up to 85. Hepatitis panel was negative, but rapid HIV test was preliminary positive. Patient also developed the next day leukocytosis 26.9. At the time of this dictation blood culture revealed gram-negative bacilli , wound culture still pending. Empiric antibiotic provided as per ID specialist recommendation for possible pneumonia in the left lung and cellulitis of the right leg. Patient restarted on lactulose. NG tube was inserted for nutritional support. Vitamin K was given for coagulopathy . Patient started on GI prophylaxis with PPI. Abdominal ultrasound was ordered along with alpha-fetoprotein. Surgeon seen patient for cellulitis of right leg. No abscess was identified. No acute surgical intervention was necessary at this time. Surgeon recommended local wound care and continue with antibiotic as prescribed by ID. Platelet counts went down to 94 from initial 116, thrombocytopenia was likely due to liver liver disease. On patient became acutely decompensated . CODE BLUE was called. CPR started and ACLS protocol initiated. Patient was oally intubated. Unfortunately despite all multiply resuscitative efforts, patient . Patient was pronounced at 10:02 AM 10/08/2027. Cause of : cardiopulmonary arrest FINAL DIAGNOSES: s/p cardiopulmonary arrest Septic shock Sepsis with gram-negative bacteremia Acute respiratory failure requiring intubation Acute kidney injury Acute hepatic encephalopathy Likely pneumonia left lung Cellulitis right leg Profound hyponatremia Hyperkalemia Metabolic acidosis Alcoholic liver disease ETOH cirrhosis Coagulopathy Transaminitis/ETOH hepatitis HIV positive Hypoglycemia Anemia Thrombocytopenia History of hypertension History of ETOH abuse I have been assigned to dictate discharge summary for this account. I was not involved in the patient's management. Svetlana Calhoun NP Oct 09, 2019 09:06
== END 2019-10-08 10:02 | disposition expired | DRG 720 ==
LOC: EDBD 01:26 → EMR 01:44 → ICU 02:40 → EDBEDREQSVC 03:35 → EDBEDREQ 03:35
PROC: 0BH17EZ Insertion of Endotracheal Airway into Trachea, Via Natural or Artificial Opening (ICD-10-PCS; principal; 2019-10-08)
PROC: 5A12012 Performance of Cardiac Output, Single, Manual (ICD-10-PCS; 2019-10-08)
DX: A41.50 Gram-negative sepsis, unspecified (principal); R65.21 Severe sepsis with septic shock; N17.9 Acute kidney failure, unspecified; K70.40 Alcoholic hepatic failure without coma; E87.1 Hypo-osmolality and hyponatremia; L03.115 Cellulitis of right lower limb; D69.6 Thrombocytopenia, unspecified; K70.30 Alcoholic cirrhosis of liver without ascites; E16.2 Hypoglycemia, unspecified; J96.00 Acute respiratory failure, unspecified whether with hypoxia or hypercapnia; J18.9 Pneumonia, unspecified organism; E87.5 Hyperkalemia; D68.4 Acquired coagulation factor deficiency; K70.10 Alcoholic hepatitis without ascites; D64.9 Anemia, unspecified; I10 Essential (primary) hypertension; F10.11 Alcohol abuse, in remission
CPT/HCPCS: 36415; 36600; 70450; 71045; 74018; 80053; 80061; 80202; 81001; 82140; 82248; 82533; 82607; 82728; 82746; 82803; 82977; 83036; 83735; 83880; 83930; 83935; 84100; 84300; 84439; 84443; 84484; 84550; 85007; 85025; 85384; 85610; 85730; 86140; 86689; 86703; 86705; 86709; 86803; 86850; 86900; 86901; 87040; 87070; 87081; 87205; 87340; 96361; 96365; 96367; 96375; 99291; G0480; J0171; J0834; J2370